=== PATIENT | female | born 1935 | race Caucasian/White ===

== ENCOUNTER → 2017-08-17 | Outpatient (CLI) | payer OTHER ==
[2017-08-17 09:35] LABS: HEMATOCRIT 40.9 % (37-47); MEAN CELL VOLUME 91.3 fL (80-100); MEAN CORPUSCULAR HEMOGLOBIN 30.8 pg (25-34); MEAN CORPUSCULAR HGB CONC 33.7 g/dl (32-36); MEAN PLATELET VOLUME 11.3 fL (7.4-10.4); PLATELET COUNT 253 K/uL (130-400); RED BLOOD COUNT 4.48 M/uL (4.2-5.4); WHITE BLOOD COUNT 8.82 K/uL (4.8-10.8)
[2017-08-17 09:43] LABS: ALT/SGPT 27 U/L (12-78); BLOOD UREA NITROGEN 23 mg/dl (7-18); BUN/CREATININE RATIO 22.2 (10-20); CALCIUM 9.7 mg/dl (8.5-10.1); CARBON DIOXIDE 27 mmol/L (21-32); CHLORIDE 105 mmol/L (98-107); CHOLESTEROL 163 mg/dl (0-200); CREATININE 1.02 mg/dl (0.60-1.20); GLUCOSE 117 mg/dl (70-99); POTASSIUM 3.5 mmol/L (3.5-5.1); SODIUM 138 mmol/L (136-145)
[2017-08-17 09:54] LABS: ALB/GLOB RATIO 0.9 (0.9-2); ALKALINE PHOSPHATASE 75 U/L (45-117); AST/SGOT 19 U/L (15-37); CHOLESTEROL/HDL RATIO 2.9; HDL CHOLESTEROL 56 mg/dl; LDL CHOLESTEROL CALCULATED 70 mg/dl; TRIGLYCERIDES 184 mg/dl (0-150); VERY LOW DENSITY LIPOPROT CALC 37 mg/dl
== END | disposition home or self-care (01) ==
LOC: C.LABFOXMH 09:20
PROVIDERS: ATTEND Internal Medicine
DX: I10 Essential (primary) hypertension (principal); E78.00 Pure hypercholesterolemia, unspecified

== ENCOUNTER → 2018-04-07 | Outpatient (CLI) | payer OTHER ==
[2018-04-07 10:11] LABS: BLOOD UREA NITROGEN 26 mg/dl (7-18); CALCIUM 9.6 mg/dl (8.5-10.1); CARBON DIOXIDE 27 mmol/L (21-32); CREATININE 0.99 mg/dl (0.60-1.20); GLUCOSE 109 mg/dl (70-99); POTASSIUM 4.1 mmol/L (3.5-5.1); SODIUM 140 mmol/L (136-145)
[2018-04-07 10:25] LABS: HEMOGLOBIN A1C 6.3 % (4.5-5.6)
== END | disposition home or self-care (01) ==
LOC: C.LABFOXMH 09:05
PROVIDERS: ATTEND Internal Medicine
DX: E11.9 Type 2 diabetes mellitus without complications (principal)

== ENCOUNTER 2020-12-20 16:26 | Inpatient (IN) ==
--- NOTE | 2020-12-20 19:01 | Emergency Department Note ---
History of Present Illness General Chief complaint: Fall Stated complaint: FALL, HEAD INJ, BACK INJ Time Seen by Provider: 12/20/20 18:45 Source: patient History of Present Illness Provider complaint: Back pain Onset (ago): hour(s) Location: back Radiation: non-radiation Pain Consistency: + constant Maximum Pain Intensity: 10 Quality: + dull Exacerbated By: + movement Associated symptoms: no chest pain, no cough, no fever/chills, no headaches, no nausea/vomiting and no shortness of breath This is an 85-year-old female presents with back pain after a fall just prior to arrival. The patient was playing [employer] and fell backwards and hit her back on the ground. She also hit her head but she denies any headache or LOC. She denies any blood thinners other than aspirin. She complains of pain from her neck down to her upper low back. She describes it as dull. It is worse with movement. She rates it a 10 out of 10 in severity. No associated focal numbness or weakness in the extremities. She denies any hip or extremity pain. She denies any recent illness or fever, cough or cold symptoms, chest pain, shortness of breath, abdominal pain, vomiting, diarrhea or urinary symptoms. Home Medications Medication Instructions Recorded Confirmed Type amlodipine 5 mg tablet 5 mg PO QAM 06/30/19 12/20/20 History aspirin 81 mg tablet,delayed 81 mg PO 3XWK 06/30/19 12/20/20 History release atenolol 50 mg tablet 50 mg PO QAM 06/30/19 12/20/20 History cholecalciferol (vitamin D3) 25 1,000 units PO QAM 06/30/19 12/20/20 History mcg (1,000 unit) capsule cranberry concentrate-ascorbic 1 cap PO WK cap 06/30/19 12/20/20 History acid 140 mg-100 mg capsule losartan 100 mg tablet 100 mg PO QAM 06/30/19 12/20/20 History potassium chloride 10 mEq 30 meq PO DAILY cap 06/30/19 12/20/20 History capsule,extended release rosuvastatin 10 mg tablet 10 mg PO WK 06/30/19 12/20/20 History sodium chloride 5 % eye drops 1 drops OP QAM 06/30/19 12/20/20 History sodium chloride 5 % eye ointment 1 appln OP HS 06/30/19 12/20/20 History triamterene 37.5 1 cap PO QAM 06/30/19 12/20/20 History mg-hydrochlorothiazide 25 mg capsule acetaminophen [Acetaminophen Extra 500 mg PO BID PRN 08/18/19 12/20/20 History Strength] diphenhydramine-acetaminophen 1 tab PO HS 08/18/19 12/20/20 History [Acetaminophen PM] sodium chloride [Saline Nasal] 1 spray INTRANASAL QA 08/18/19 12/20/20 History pantoprazole 40 mg tablet,delayed 40 mg PO DAILY #90 tab 11/24/19 12/20/20 Rx release metformin 500 mg PO DAILY 12/20/20 12/20/20 History Allergies Allergy/AdvReac Type Severity Reaction Status Date / Time No Known Drug Allergies Allergy Unknown Verified 12/20/20 19:49 Past Med/Surg History Medical History (Updated 12/20/20 @ 22:25 by Candido Duggan MD) Basal cell carcinoma of nose Difficulty swallowing pills Hyperlipidemia Hypertension Osteoarthritis Surgical History History of appendectomy 1963 History of bilateral cataract extraction History of carpal tunnel surgery of left wrist History of colonoscopy with polypectomy History of dilatation and curettage History of hand surgery bone removal of left hand under thumb History of hysterectomy 2010 History of left breast biopsy benign History of tonsillectomy and adenoidectomy History of tooth extraction History of wisdom tooth extraction Family History Mother Hearing loss Heart disease Hypertension Family history of diabetes mellitus Aunt Breast cancer Other No family history of adverse response to anesthesia No family history of bleeding disorder Social History Smoking Status: Former smoker Tobacco Type: Cigarettes packs per day: 0.5; Years Smoked: 7; Second Hand Exposure: No; Hx Alcohol Use: Yes Alcohol type: wine Hx Substance Use: No Preferred Language: [place]ese Communication Ability: Effective 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 and A total of 10 systems reviewed and were otherwise negative Physical Exam Vital Signs Vital Signs - 24 hr 12/20/20 17:09 12/20/20 19:48 12/20/20 21:00 Temperature 36.6 C Temperature Source Oral Pulse Rate 61 Pulse Rate [Radial] 82 82 Pulse Rate from SpO2 Sensor Pulse Rhythm Regular Pulse Strength Normal Respiratory Rate 20 20 20 Respiratory Effort / Characteristics Non-Labored Spontaneous Respiratory Depth Normal Normal Respiratory Pattern Regular Blood Pressure 157/85 H Blood Pressure [Right Arm] 165/81 H 155/75 H Blood Pressure Mean 109 Blood Pressure Mean [Right Arm] 109 101 Blood Pressure Position [Right Arm] Sitting Pulse Oximetry 97 96 96 Oxygen Delivery Method Room Air Room Air Room Air Sepsis Recent Fever Within 48 Hours No Sepsis New/Unexplained Change in Mental Status N/A Sepsis Action Taken by Nursing No Action Required 12/20/20 21:13 12/20/20 21:31 12/20/20 21:38 Temperature Temperature Source Pulse Rate 76 73 72 Pulse Rate [Radial] Pulse Rate from SpO2 Sensor 77 74 71 Pulse Rhythm Pulse Strength Respiratory Rate 18 13 17 Respiratory Effort / Characteristics Respiratory Depth Respiratory Pattern Blood Pressure 162/85 H 147/101 H Blood Pressure [Right Arm] Blood Pressure Mean 110 116 Blood Pressure Mean [Right Arm] Blood Pressure Position [Right Arm] Pulse Oximetry 94 90 91 Oxygen Delivery Method Sepsis Recent Fever Within 48 Hours Sepsis New/Unexplained Change in Mental Status Sepsis Action Taken by Nursing 12/20/20 22:00 Temperature Temperature Source Pulse Rate 72 Pulse Rate [Radial] Pulse Rate from SpO2 Sensor 73 Pulse Rhythm Pulse Strength Respiratory Rate 19 Respiratory Effort / Characteristics Respiratory Depth Respiratory Pattern Blood Pressure 143/75 H Blood Pressure [Right Arm] Blood Pressure Mean 97 Blood Pressure Mean [Right Arm] Blood Pressure Position [Right Arm] Pulse Oximetry 95 Oxygen Delivery Method Sepsis Recent Fever Within 48 Hours Sepsis New/Unexplained Change in Mental Status Sepsis Action Taken by Nursing Constitutional: Vital signs reviewed. Eyes: Pupils are equal round reactive to light. Conjunctiva are noninjected. ENT: Pharynx is clear without erythema or exudate. Mucous membranes are moist. Neck supple without meningeal signs. Respiratory: Clear to auscultation bilaterally. Breath sounds are equal bilaterally. Cardiovascular: Regular rate and rhythm. No rubs or gallops. GI: Soft, nondistended and nontender. Bowel sounds are present. Musculoskeletal: No hip tenderness. There is midline tenderness in the upper lumbar lower thoracic and lower cervical spine. No step-off or deformity. Integumentary: No cyanosis. or jaundice. Neurologic: The patient is awake and alert. Cranial nerves II-XII are intact. Motor is 5 out of 5 all extremities. Sensation is intact to light touch all extremities. Normal speech. No pronator drift. Psychiatric: Normal affect. Not anxious appearing. Course Administered Medications Discontinued Medications Morphine Sulfate (Morphine Sulfate 2 Mg/Ml Carp) 2 mg IV NOW STA Stop: 12/20/20 21:02 Last Admin: 12/20/20 21:22 Dose: 2 mg Documented by: [id number] Ondansetron HCl (Ondansetron Inj 2 Mg/Ml 2 Ml Vial) 4 mg IV NOW STA Stop: 12/20/20 21:02 Last Admin: 12/20/20 21:22 Dose: 4 mg Documented by: [id number] Medical Decision Making Differential Diagnosis Vertebral fracture, compression fracture, transverse process fracture, contusion, intracranial hemorrhage, concussion Medical Records Attestation: I reviewed the patient's medical records. I did perform a limited focused review of portions of the patient's old chart on the electronic medical record. The patient has had no recent pertinent visits to this hospital. Home Medications Current Medication List: was personally reviewed by me Laboratory Data Attestation: I reviewed the patient's lab results. Result diagrams: 12/20/20 Unknown 12/20/20 Unknown Lab Results 12/20/20 12/20/20 12/20/20 Range/Units Unknown Unknown Unknown WBC 15.48 H (4.8-10.8) K/uL RBC 4.57 (4.2-5.4) M/uL Hgb 14.4 (12.0-16.0) g/dL Hct 42.1 (37-47) % MCV 92.1 (80-100) fL MCH 31.5 (25-34) pg MCHC 34.2 (32-36) g/dL RDW Std Deviation 44.1 (36.4-46.3) fL RDW Coeff of Dylon 13.2 (11.5-14.5) % Plt Count 250 (130-400) K/uL MPV 11.3 H (7.4-10.4) fL Immature Gran % (Auto) 0.3 % Neut % (Auto) 82.8 % Lymph % (Auto) 10.3 % Gillespie % (Auto) 6.2 % Eos % (Auto) 0.3 % Baso % (Auto) 0.1 % Neut # (Auto) 12.82 H (1.4-6.5) K/uL Lymph # (Auto) 1.59 (1.2-3.4) K/uL Gillespie # (Auto) 0.96 H (0.11-0.59) K/uL Eos # (Auto) 0.05 (0-0.5) K/uL Baso # (Auto) 0.01 (0-0.2) K/uL Immature Gran # (Auto) 0.05 H (0.00-0.02) K/uL PT 10.3 (9.0-12.0) Seconds INR 1.0 (0.9-1.1) APTT 23.6 (21.0-31.0) Seconds PTT Ratio 0.9 Sodium 139 (136-145) mmol/L Potassium 4.3 (3.5-5.1) mmol/L Chloride 107 (98-107) mmol/L Carbon Dioxide 24 (21-32) mmol/L Anion Gap 8.0 (3-11) BUN 31 H (7-18) mg/dl Creatinine 1.06 (0.6-1.2) mg/dl Est Cr Clr Drug Dosing 33.6 ml/min Est GFR ( Amer) 55.1 Est GFR (Non-Af Amer) 47.5 BUN/Creatinine Ratio 29.2 H (10-20) Glucose 156 H (70-99) mg/dl Calcium 10.5 H (8.5-10.1) mg/dl COVID-19 Eval Order 12/20/20 Range/Units Unknown WBC (4.8-10.8) K/uL RBC (4.2-5.4) M/uL Hgb (12.0-16.0) g/dL Hct (37-47) % MCV (80-100) fL MCH (25-34) pg MCHC (32-36) g/dL RDW Std Deviation (36.4-46.3) fL RDW Coeff of Dylon (11.5-14.5) % Plt Count (130-400) K/uL MPV (7.4-10.4) fL Immature Gran % (Auto) % Neut % (Auto) % Lymph % (Auto) % Gillespie % (Auto) % Eos % (Auto) % Baso % (Auto) % Neut # (Auto) (1.4-6.5) K/uL Lymph # (Auto) (1.2-3.4) K/uL Gillespie # (Auto) (0.11-0.59) K/uL Eos # (Auto) (0-0.5) K/uL Baso # (Auto) (0-0.2) K/uL Immature Gran # (Auto) (0.00-0.02) K/uL PT (9.0-12.0) Seconds INR (0.9-1.1) APTT (21.0-31.0) Seconds PTT Ratio Sodium (136-145) mmol/L Potassium (3.5-5.1) mmol/L Chloride (98-107) mmol/L Carbon Dioxide (21-32) mmol/L Anion Gap (3-11) BUN (7-18) mg/dl Creatinine (0.6-1.2) mg/dl Est Cr Clr Drug Dosing ml/min Est GFR ( Amer) Est GFR (Non-Af Amer) BUN/Creatinine Ratio (10-20) Glucose (70-99) mg/dl Calcium (8.5-10.1) mg/dl COVID-19 Eval Order CovFluRsv at [facility] Imaging Data Radiologist's Impression: Cervical Spine CT 12/20/20 18:55 CT OF THE CERVICAL SPINE WITHOUT CONTRAST CLINICAL HISTORY: Fall. COMPARISON STUDY: Cervical spine radiographs June 02, 2019. TECHNIQUE: Helical axial images of the cervical spine were obtained without IV contrast. Sagittal and coronal reconstructions were viewed. Automated exposure control was utilized for the study. A dose lowering technique was utilized adhering to the principles of ALARA. FINDINGS: Alignment of the cervical spine is anatomic. Vertebral body heights are maintained. No acute cervical spine fracture or subluxation is present. There is no prevertebral edema. Facet joints are intact. Severe multilevel facet arthrosis is present. There is also extensive multilevel endplate osteophytosis. IMPRESSION: No acute cervical spine fracture or subluxation. ACT 112: Negative or not required by law. Electronically signed by: Barry Cohen M.D. 12/20/2020 7:[address] 12/20/20 18:55 CT OF THE HEAD WITHOUT CONTRAST CLINICAL HISTORY: Fall. COMPARISON STUDY: No previous studies for comparison. TECHNIQUE: Helical axial images of the head were obtained without IV contrast. Automated exposure control was utilized for the study. A dose lowering technique was utilized adhering to the principles of ALARA. FINDINGS: No acute intracranial hemorrhage, midline shift or mass effect is present. Mild white matter hypodensity suggests small vessel disease. The ventricular system is unremarkable. The basal cisterns are patent. No extra- axial collections are present. There are no findings to suggest acute dural sinus thrombosis or acute territorial infarct. No significant calvarial abnormalities are present. Visualized portions of the sinuses and mastoid air cells are clear. IMPRESSION: 1. No acute intracranial findings. 2. No calvarial fracture. ACT 112: Negative or not required by law. Electronically signed by: Barry Cohen M.D. 12/20/2020 7:[address] 12/20/20 18:55 CT OF THE LUMBAR SPINE CLINICAL HISTORY: fall eval for injury COMPARISON STUDY: No previous studies for comparison. TECHNIQUE: Helical axial images of the lumbar spine were obtained. Sagittal and coronal reconstructions were viewed. Automated exposure control was utilized for the study. A dose lowering technique was utilized adhering to the principles of ALARA. FINDINGS: There is mild dextroscoliosis of the lumbar spine. Vertebral body heights are maintained. There is no acute lumbar spine fracture. Moderate to severe multilevel disc space narrowing is noted as well as facet arthrosis. The central canal and neural foramen are suboptimally assessed by CT. Paravertebral soft tissues are unremarkable. The sacroiliac joints are intact. IMPRESSION: 1. No acute lumbar spine fracture or subluxation. 2. Severe multilevel facet arthrosis within the lumbar spine. Moderate to severe multilevel degenerative disc disease. 3. Mild dextroscoliosis of the lumbar spine. ACT 112: Negative or not required by law. Electronically signed by: Barry Cohen M.D. 12/20/2020 8:[address] 12/20/20 18:55 CT OF THE THORACIC SPINE CLINICAL HISTORY: fall eval for injury COMPARISON STUDY: No previous studies for comparison. TECHNIQUE: Helical axial images of the thoracic spine were obtained. Sagittal and coronal reconstructions were viewed. Automated exposure control was utilized for the study. A dose lowering technique was utilized adhering to the principles of ALARA. FINDINGS: Note is made of a horizontal acute nondisplaced fracture which extends through the mid aspect of the T11 vertebral body as well as right lateral osteophytes at this level. No extension into the posterior elements is identified on this examination. There is also a probable additional acute fr acture through right sided osteophytes at the level of the T9-T10 disc space. No extension into the posterior elements is identified by CT. Central canal and neural foramen are suboptimally assessed by CT but no additional acute thoracic spine fractures are present. There is extensive anterior osteophytosis of the thoracic spine. Prevertebral soft tissues are unremarkable. A few hypodense hepatic lesions are noted. The largest is a 2.4 cm right hepatic lobe lesion. There is biliary ductal dilatation. The common bile duct measures approximately 1.2 cm in caliber. IMPRESSION: 1. Acute horizontal fracture through the T11 vertebral body and right lateral osteophytes at this level. No extension into the posterior elements by CT. However, stability of this fracture is difficult to assess by CT given extensive anterior osteophytosis. Therefore, at a minimum, short-term imaging follow-up is recommended to exclude the possibility of a developing pseudoarthrosis. 2. Probable additional acute nondisplaced fracture through right sided osteophytes at the T9-T10 disc space. 3. A few hypodense hepatic lesions which favor cysts. Nonemergent ultrasound is recommended. 4. Mild biliary ductal dilatation. Correlation with liver function tests is recommended. ACT 112: Negative or not required by law. Electronically signed by: Barry Cohen M.D. 12/20/2020 8:39 PM Head Trauma GCS Score: 15 MDM Narrative I did evaluate the patient as noted above. The patient is presenting with back pain and neck pain after a mechanical fall while playing ping-pong. She is neurologically intact. She was placed in a rigid cervical collar. I did order a CT of the head, cervical, thoracic, lumbar spine. I did review the images myself as well as the radiology report as described above. She has a fracture through the T11 vertebral body which is nondisplaced. She also has a fracture through an osteophyte. CT of the head, cervical spine and lumbar spine shows no acute process. I did discuss the case with Dr. Mcbride of orthopedic spine. He recommended bed rest or sitting up in bed only and he will see the patient tomorrow and place her in a thoracic brace. I did discuss the test results with the patient and her son. A Cowan catheter was placed so that she would not have to use a bedpan. IV access was established. I did treat her with IV morphine and Zofran. I did order and review the patient's blood work as noted in the electronic medical record. Her white count is 15,000 but her CBC is otherwise unremarkable. Electrolytes are unremarkable other than a calcium of 10.5. The case was discussed with the case packer and the hospitalist was informed. Impression & Plan Fracture of thoracic vertebra, Head injury, Fall Discharge Plan Visit Data Chief Complaint: Fall Stated Complaint: FALL, HEAD INJ, BACK INJ ED Provider: Candido Duggan Discharge Problem: Fracture of thoracic vertebra, Head injury, Fall Patient Disposition: Being Evaluated by Hospitalist Forms Stand Alone Forms: My [facility] Prescriptions Prescriptions: No Action pantoprazole 40 mg tablet,delayed release (DR/EC) 40 mg PO DAILY Qty: 90 RF: 3 losartan 100 mg tablet 100 mg PO QAM RF: 0 triamterene-hydrochlorothiazid 37.5-25 mg capsule 1 cap PO QAM RF: 0 atenolol 50 mg tablet 50 mg PO QAM RF: 0 amlodipine [Norvasc] 5 mg tablet 5 mg PO QAM RF: 0 potassium chloride 10 mEq capsule, extended release 30 meq PO DAILY RF: 0 cholecalciferol (vitamin D3) 1,000 unit capsule 1,000 units PO QAM RF: 0 aspirin [Adult Low Dose Aspirin] 81 mg tablet,delayed release (DR/EC) 81 mg PO 3XWK RF: 0 rosuvastatin [Crestor] 10 mg tablet 10 mg PO WK RF: 0 Cranberry Plus Vitamin C 140-100 mg capsule 1 cap PO WK RF: 0 sodium chloride 5 % drops 1 drops OP QAM RF: 0 sodium chloride 5 % ointment 1 appln OP HS RF: 0 acetaminophen [Acetaminophen Extra Strength] 500 mg Tablet 500 mg PO BID PRN (Reason: Pain) RF: 0 diphenhydramine-acetaminophen [Acetaminophen PM] 25-500 mg Tablet 1 tab PO HS RF: 0 sodium chloride [Saline Nasal] 0.65 % Aerosol,[place] 1 spray INTRANASAL QAM RF: 0 metformin 500 mg tablet extended release 24 hr 500 mg PO DAILY RF: 0 Referrals Referrals: Cesilia Penaloza [Primary Care Provider] -
--- NOTE | 2020-12-20 19:45 | CT Scan Report ---
CT OF THE HEAD WITHOUT CONTRAST CLINICAL HISTORY: Fall. COMPARISON STUDY: No previous studies for comparison. TECHNIQUE: Helical axial images of the head were obtained without IV contrast. Automated exposure con trol was utilized for the study. A dose lowering technique was utilized adhering to the principles o f ALARA. FINDINGS: No acute intracranial hemorrhage, midline shift or mass effect is present. Mild white matte r hypodensity suggests small vessel disease. The ventricular system is unremarkable. The basal cister ns are patent. No extra-axial collections are present. There are no findings to suggest acute dural s inus thrombosis or acute territorial infarct. No significant calvarial abnormalities are present. Vis ualized portions of the sinuses and mastoid air cells are clear. IMPRESSION: 1. No acute intracranial findings. 2. No calvarial fracture. ACT 112: Negative or not required by law. Electronically signed by: Barry Cohen M.D. 12/20/2020 7:44 PM
--- NOTE | 2020-12-20 19:49 | CT Scan Report ---
CT OF THE CERVICAL SPINE WITHOUT CONTRAST CLINICAL HISTORY: Fall. COMPARISON STUDY: Cervical spine radiographs June 02, 2019. TECHNIQUE: Helical axial images of the cervical spine were obtained without IV contrast. Sagittal a nd coronal reconstructions were viewed. Automated exposure control was utilized for the study. A do se lowering technique was utilized adhering to the principles of ALARA. FINDINGS: Alignment of the cervical spine is anatomic. Vertebral body heights are maintained. No acut e cervical spine fracture or subluxation is present. There is no prevertebral edema. Facet joints are intact. Severe multilevel facet arthrosis is present. There is also extensive multilevel endplate o steophytosis. IMPRESSION: No acute cervical spine fracture or subluxation. ACT 112: Negative or not required by law. Electronically signed by: Barry Cohen M.D. 12/20/2020 7:47 PM
--- NOTE | 2020-12-20 20:40 | CT Scan Report ---
CT OF THE THORACIC SPINE CLINICAL HISTORY: fall eval for injury COMPARISON STUDY: No previous studies for comparison. TECHNIQUE: Helical axial images of the thoracic spine were obtained. Sagittal and coronal reconstru ctions were viewed. Automated exposure control was utilized for the study. A dose lowering techniqu e was utilized adhering to the principles of ALARA. FINDINGS: Note is made of a horizontal acute nondisplaced fracture which extends through the mid aspe ct of the T11 vertebral body as well as right lateral osteophytes at this level. No extension into th e posterior elements is identified on this examination. There is also a probable additional acute fra cture through right sided osteophytes at the level of the T9-T10 disc space. No extension into the po sterior elements is identified by CT. Central canal and neural foramen are suboptimally assessed by C T but no additional acute thoracic spine fractures are present. There is extensive anterior osteophyt osis of the thoracic spine. Prevertebral soft tissues are unremarkable. A few hypodense hepatic lesio ns are noted. The largest is a 2.4 cm right hepatic lobe lesion. There is biliary ductal dilatation. The common bile duct measures approximately 1.2 cm in caliber. IMPRESSION: 1. Acute horizontal fracture through the T11 vertebral body and right lateral osteophytes at this lev el. No extension into the posterior elements by CT. However, stability of this fracture is difficult to assess by CT given extensive anterior osteophytosis. Therefore, at a minimum, short-term imaging f ollow-up is recommended to exclude the possibility of a developing pseudoarthrosis. 2. Probable additional acute nondisplaced fracture through right sided osteophytes at the T9-T10 disc space. 3. A few hypodense hepatic lesions which favor cysts. Nonemergent ultrasound is recommended. 4. Mild biliary ductal dilatation. Correlation with liver function tests is recommended. ACT 112: Negative or not required by law. Electronically signed by: Barry Cohen M.D. 12/20/2020 8:39 PM
--- NOTE | 2020-12-20 20:49 | CT Scan Report ---
CT OF THE LUMBAR SPINE CLINICAL HISTORY: fall eval for injury COMPARISON STUDY: No previous studies for comparison. TECHNIQUE: Helical axial images of the lumbar spine were obtained. Sagittal and coronal reconstruct ions were viewed. Automated exposure control was utilized for the study. A dose lowering technique was utilized adhering to the principles of ALARA. FINDINGS: There is mild dextroscoliosis of the lumbar spine. Vertebral body heights are maintained. T here is no acute lumbar spine fracture. Moderate to severe multilevel disc space narrowing is noted a s well as facet arthrosis. The central canal and neural foramen are suboptimally assessed by CT. Para vertebral soft tissues are unremarkable. The sacroiliac joints are intact. IMPRESSION: 1. No acute lumbar spine fracture or subluxation. 2. Severe multilevel facet arthrosis within the lumbar spine. Moderate to severe multilevel degenerat gina disc disease. 3. Mild dextroscoliosis of the lumbar spine. ACT 112: Negative or not required by law. Electronically signed by: Barry Cohen M.D. 12/20/2020 8:48 PM
[2020-12-20] MEDS ORDERED: ONDANSETRON INJ 2 MG/ML 2 ML VIAL IV STA (21:01)
[2020-12-20] MEDS ORDERED: MoRPHine SULFATE 2 MG/ML CARP IV STA (21:01)
[2020-12-20 22:00] LABS: Basophils # (auto) 0.01 K/uL (0-0.2); Basophils % (auto) 0.1 %; Eosinophils # (auto) 0.05 K/uL (0-0.5); Eosinophils % (auto) 0.3 %; Hematocrit (blood only) 42.1 % (37-47); Hemoglobin 14.4 g/dL (12.0-16.0); Immature Granulocytes # (auto) 0.05 K/uL (0.00-0.02); Immature Granulocytes % (auto) 0.3 %; Lymphocytes # (auto) 1.59 K/uL (1.2-3.4); Lymphocytes % (auto) 10.3 %; Mean Corpuscular Hemoglobin 31.5 pg (25-34); Mean Corpuscular Hgb Conc 34.2 g/dL (32-36); Mean Corpuscular Volume 92.1 fL (80-100); Mean Platelet Volume 11.3 fL (7.4-10.4); Monocytes # (auto) 0.96 K/uL (0.11-0.59); Monocytes % (auto) 6.2 %; Neutrophils # (auto) 12.82 K/uL (1.4-6.5); Neutrophils % (auto) 82.8 %; Platelet Count 250 K/uL (130-400); RDW Coefficient of Variation 13.2 % (11.5-14.5); RDW Standard Deviation 44.1 fL (36.4-46.3); Red Blood Count 4.57 M/uL (4.2-5.4); White Blood Count 15.48 K/uL (4.8-10.8)
[2020-12-20 22:15] LABS: Partial Thromboplastin Ratio 0.9; Partial Thromboplastin Time 23.6 Seconds (21.0-31.0); Prothrombin Time 10.3 Seconds (9.0-12.0)
[2020-12-20 22:18] LABS: BUN Creatinine Ratio 29.2 (10-20); Calcium 10.5 mg/dl (8.5-10.1); Creatinine Clr Calc Pharmacy 33.6 ml/min; Est GFR (African American) 55.1; Est GFR (Non-African American) 47.5; Potassium 4.3 mmol/L (3.5-5.1)
--- NOTE | 2020-12-20 22:37 | History & Physical Report ---
Date of Service December 20, 2020 Assessment & Plan (1) Fracture of thoracic vertebra: CT of thoracic spine reveals T11 vertebral body fracture and right lateral osteophyte fractures. T9-[address] lumbar spine shows multilevel degenerative disc disease. Acetaminophen 650 mg p.o. every 6 hours as needed mild pain or fever [place] 5/325, 1 p.o. every 6 hours as needed moderate pain, and 2 p.o. every 6 hours as needed severe pain Dilaudid 0.25 mg IV every 3 hours as needed moderate pain Dilaudid 0.5 mg IV every 3 hours as needed severe pain NSS + KCl 20 mEq at 80 mils per hour Consult orthopedic spine surgery Dr. Mcbride, who will see patient in the a.m., and in addition will fit for back brace. Consult PT/OT Present on Admission?: Yes (2) Head injury: CT head without contrast is negative. CT cervical spine without contrast is negative Patient appears to be at low normal level of mentation per family in attendance. Present on Admission?: Yes (3) Fall: Mechanical fall while playing [employer] Present on Admission?: Yes (4) GERD (gastroesophageal reflux disease): GERD/esophageal dysphagia- Continue pantoprazole 40 mg daily Present on Admission?: Yes (5) Esophageal dysphagia: See above Present on Admission?: Yes (6) Diabetes mellitus: Hold Metformin. Placed on Accu-Cheks before meals and at bedtime with NovoLog coverage per scale Present on Admission?: Yes (7) Hyperlipidemia: Continue rosuvastatin 10 mg p.o. weekly Present on Admission?: Yes (8) Hypertension: Continue amlodipine, aspirin, atenolol and losartan with hold parameters Present on Admission?: Yes History of Present Illness Chief Complaint: The patient presents to the emergency department with complaint of back pain after a fall that occurred just prior to arrival. Primary Care Provider: Cesilia Penaloza The patient is a 85-year-old female with a past medical history including GERD, esophageal dysphagia, hypertension, diabetes mellitus, and hyperlipidemia. She reportedly was playing [employer] and fell backwards, hitting her back and head on the ground. She has not had any recent travels or sick exposures. She said no other falls or injuries. Allergies Allergy/AdvReac Type Severity Reaction Status Date / Time No Known Drug Allergies Allergy Unknown Verified 12/20/20 19:49 Home Medications Medication Instructions Recorded Confirmed Type amlodipine 5 mg tablet 5 mg PO QAM 06/30/19 12/20/20 History aspirin 81 mg tablet,delayed 81 mg PO [id number] 06/30/19 12/20/20 History release atenolol 50 mg tablet 50 mg PO QAM 06/30/19 12/20/20 History cholecalciferol (vitamin D3) 25 1,000 units PO QAM 06/30/19 12/20/20 History mcg (1,000 unit) capsule cranberry concentrate-ascorbic 1 cap PO WK cap 06/30/19 12/20/20 History acid 140 mg-100 mg capsule losartan 100 mg tablet 100 mg PO QAM 06/30/19 12/20/20 History potassium chloride 10 mEq 30 meq PO DAILY cap 06/30/19 12/20/20 History capsule,extended release rosuvastatin 10 mg tablet 10 mg PO WK 06/30/19 12/20/20 History sodium chloride 5 % eye drops 1 drops OP QAM 06/30/19 12/20/20 History sodium chloride 5 % eye ointment 1 appln OP HS 06/30/19 12/20/20 History triamterene 37.5 1 cap PO QAM 06/30/19 12/20/20 History mg-hydrochlorothiazide 25 mg capsule acetaminophen [Acetaminophen Extra 500 mg PO BID PRN 08/18/19 12/20/20 History Strength] diphenhydramine-acetaminophen 1 tab PO HS 08/18/19 12/20/20 History [Acetaminophen PM] sodium chloride [Saline Nasal] 1 spray INTRANASAL QAM 08/18/19 12/20/20 History pantoprazole 40 mg tablet,delayed 40 mg PO DAILY #90 tab 11/24/19 12/20/20 Rx release metformin 500 mg PO DAILY 12/20/20 12/20/20 History Past Med/Surg History Medical History (Updated 12/21/20 @ 05:29 by Horacio Myles MD) Basal cell carcinoma of nose Diabetes mellitus Difficulty swallowing pills Hyperlipidemia Hypertension Osteoarthritis Surgical History History of appendectomy 1963 History of bilateral cataract extraction History of carpal tunnel surgery of left wrist History of colonoscopy with polypectomy History of dilatation and curettage History of hand surgery bone removal of left hand under thumb History of hysterectomy 2010 History of left breast biopsy benign History of tonsillectomy and adenoidectomy History of tooth extraction History of wisdom tooth extraction Family History Mother Hearing loss Heart disease Hypertension Family history of diabetes mellitus Aunt Breast cancer Other No family history of adverse response to anesthesia No family history of bleeding disorder Social History Smoking Status: Former smoker Tobacco Type: Cigarettes packs per day: 0.5; Years Smoked: 7; Smoking End Date: Quit in 1963.; Second Hand Exposure: No; Do You Dip or Chew Tobacco: No; Tobacco Cessation Education Requested by Patient: No Hx Alcohol Use: Yes Alcohol type: wine Hx Substance Use: No Preferred Language: Romanian Communication Ability: Effective Finish Opener Required: No Beliefs That Will Affect Care: Holiness Holiness Beliefs: Confucianist. Current Living Situation: Alone and Other Current Living Situation Comment[place] [facility] [place] current occupational status: retired Other Information That Helps Us Care for You: No Feels Safe at Home: Yes Safety Concerns: Feels Safe At This Time Assistive Devices: Glasses Review of Systems Review of Systems: The patient denies chest pain, palpitations, shortness of breath, dyspnea on exertion, cough, lower extremity swelling, sore throat, fevers, chills, sweats, weight change, fatigue, nausea, vomiting, diarrhea , constipation, abdominal pain, pelvic pain, blood in urine or stool, dysuria, urinary frequency or urgency, lightheadedness, dizziness, headache, loss of consciousness, rash, abnormal bruising or bleeding, imbalance, focal or generalized weakness, numbness or tingling in arms or legs, generalized arthralgias or myalgias, or night sweats. The review of systems is otherwise negative other than for that already noted above, and at least 10 systems have been reviewed. Physical Exam Physical Exam: The patient is awake, alert and oriented 3, well developed and well nourished, lying in bed and in no acute distress. HEENT--PERRL, EOMI, mucous membranes and oropharynx dry. Neck--supple. No JVD. No bruits. Thyroid normal, trachea midline, no adenopathy. Heart--normal S1 and S2. No murmurs, rubs or gallops. Lungs--clear bilaterally, no respiratory distress, no accessory muscle use. Abdomen--normal bowel sounds and soft. Nontender. Nondistended, no hernias or masses, no organomegaly. Extremities--no cyanosis or clubbing. No edema. Dermatologic--normal skin turgor, normal color, no abnormal lymph nodes, no rash. Neurologic--cranial nerves II through XII grossly intact. Rheumatologic--limited exam due to back pain Psychiatric--normal affect. Results & Data Results & Data ([facility]) Vital Signs (Past 12 Hours) Vital Signs Temp Pulse Pulse Resp BP BP Pulse Ox 12/20/20 22:00 72 19 143/75 H 95 12/20/20 21:38 72 17 147/101 H 91 12/20/20 21:31 73 13 90 12/20/20 21:13 76 18 162/85 H 94 12/20/20 21:00 82 20 155/75 H 96 12/20/20 19:48 82 20 165/81 H 96 12/20/20 17:09 97.9 F 61 20 157/85 H 97 Laboratory Results Laboratory Results WBC 15.48 K/uL (4.8-10.8) H 12/20/20 Unknown RBC 4.57 M/uL (4.2-5.4) 12/20/20 Unknown Hgb 14.4 g/dL (12.0-16.0) 12/20/20 Unknown Hct 42.1 % (37-47) 12/20/20 Unknown MCV 92.1 fL (80-100) 12/20/20 Unknown MCH 31.5 pg (25-34) 12/20/20 Unknown MCHC 34.2 g/dL (32-36) 12/20/20 Unknown RDW Std Deviation 44.1 fL (36.4-46.3) 12/20/20 Unknown RDW Coeff of [place]ylon 13.2 % (11.5-14.5) 12/20/20 Unknown Plt Count 250 K/uL (130-400) 12/20/20 Unknown MPV 11.3 fL (7.4-10.4) H 12/20/20 Unknown Immature Gran % (Auto) 0.3 % 12/20/20 Unknown Neut % (Auto) 82.8 % 12/20/20 Unknown Lymph % (Auto) 10.3 % 12/20/20 Unknown [place] % (Auto) 6.2 % 12/20/20 Unknown Eos % (Auto) 0.3 % 12/20/20 Unknown Baso % (Auto) 0.1 % 12/20/20 Unknown Neut # (Auto) 12.82 K/uL (1.4-6.5) H 12/20/20 Unknown Lymph # (Auto) 1.59 K/uL (1.2-3.4) 12/20/20 Unknown [place] # (Auto) 0.96 K/uL (0.11-0.59) H 12/20/20 Unknown Eos # (Auto) 0.05 K/uL (0-0.5) 12/20/20 Unknown Baso # (Auto) 0.01 K/uL (0-0.2) 12/20/20 Unknown Immature Gran # (Auto) 0.05 K/uL (0.00-0.02) H 12/20/20 Unknown PT 10.3 Seconds (9.0-12.0) 12/20/20 Unknown INR 1.0 (0.9-1.1) 12/20/20 Unknown APTT 23.6 Seconds (21.0-31.0) 12/20/20 Unknown PTT Ratio 0.9 12/20/20 Unknown Sodium 139 mmol/L (136-145) 12/20/20 Unknown Potassium 4.3 mmol/L (3.5-5.1) 12/20/20 Unknown Chloride 107 mmol/L (98-107) 12/20/20 Unknown Carbon Dioxide 24 mmol/L (21-32) 12/20/20 Unknown Anion Gap 8.0 (3-11) 12/20/20 Unknown BUN 31 mg/dl (7-18) H 12/20/20 Unknown Creatinine 1.06 mg/dl (0.6-1.2) 12/20/20 Unknown Est Cr Clr Drug Dosing 33.6 ml/min 12/20/20 Unknown Est GFR ( Amer) 55.1 12/20/20 Unknown Est GFR (Non-Af Amer) 47.5 12/20/20 Unknown BUN/Creatinine Ratio 29.2 (10-20) H 12/20/20 Unknown Glucose 156 mg/dl (70-99) H 12/20/20 Unknown Calcium 10.5 mg/dl (8.5-10.1) H 12/20/20 Unknown COVID-19 Eval Order CovFluRsv at [facility] 12/20/20 Unknown SARS-CoV-2 (PCR) NEGATIVE (Negative) 12/20/20 Unknown Influenza Type A (PCR) Negative (Neg) 12/20/20 Unknown Influenza Type B (PCR) Negative (Neg) 12/20/20 Unknown RSV (RT-PCR) Negative (Neg) 12/20/20 Unknown Impressions Cervical Spine CT 12/20/20 18:55 CT OF THE CERVICAL SPINE WITHOUT CONTRAST CLINICAL HISTORY: Fall. COMPARISON STUDY: Cervical spine radiographs June 02, 2019. TECHNIQUE: Helical axial images of the cervical spine were obtained without IV contrast. Sagittal and coronal reconstructions were viewed. Automated exposure control was utilized for the study. A dose lowering technique was utilized adhering to the principles of ALARA. FINDINGS: Alignment of the cervical spine is anatomic. Vertebral body heights are maintained. No acute cervical spine fracture or subluxation is present. There is no prevertebral edema. Facet joints are intact. Severe multilevel facet arthrosis is present. There is also extensive multilevel endplate osteophytosis. IMPRESSION: No acute cervical spine fracture or subluxation. ACT 112: Negative or not required by law. Electronically signed by: Barry Cohen M.D. 12/20/2020 7:[address] 12/20/20 18:55 CT OF THE HEAD WITHOUT CONTRAST CLINICAL HISTORY: Fall. COMPARISON STUDY: No previous studies for comparison. TECHNIQUE: Helical axial images of the head were obtained without IV contrast. Automated exposure control was utilized for the study. A dose lowering technique was utilized adhering to the principles of ALARA. FINDINGS: No acute intracranial hemorrhage, midline shift or mass effect is present. Mild white matter hypodensity suggests small vessel disease. The ventricular system is unremarkable. The basal cisterns are patent. No extra- axial collections are present. There are no findings to suggest acute dural sinus thrombosis or acute territorial infarct. No significant calvarial abnormalities are present. Visualized portions of the sinuses and mastoid air cells are clear. IMPRESSION: 1. No acute intracranial findings. 2. No calvarial fracture. ACT 112: Negative or not required by law. Electronically signed by: Barry Cohen M.D. 12/20/2020 7:[address] 12/20/20 18:55 CT OF THE LUMBAR SPINE CLINICAL HISTORY: fall eval for injury COMPARISON STUDY: No previous studies for comparison. TECHNIQUE: Helical axial images of the lumbar spine were obtained. Sagittal and coronal reconstructions were viewed. Automated exposure control was utilized for the study. A dose lowering technique was utilized adhering to the principles of ALARA. FINDINGS: There is mild dextroscoliosis of the lumbar spine. Vertebral body heights are maintained. There is no acute lumbar spine fracture. Moderate to severe multilevel disc space narrowing is noted as well as facet arthrosis. The central canal and neural foramen are suboptimally assessed by CT. Paravertebral soft tissues are unremarkable. The sacroiliac joints are intact. IMPRESSION: 1. No acute lumbar spine fracture or subluxation. 2. Severe multilevel facet arthrosis within the lumbar spine. Moderate to severe multilevel degenerative disc disease. 3. Mild dextroscoliosis of the lumbar spine. ACT 112: Negative or not required by law. Electronically signed by: Barry Cohen M.D. 12/20/2020 8:[address] 12/20/20 18:55 CT OF THE THORACIC SPINE CLINICAL HISTORY: fall eval for injury COMPARISON STUDY: No previous studies for comparison. TECHNIQUE: Helical axial images of the thoracic spine were obtained. Sagittal and coronal reconstructions were viewed. Automated exposure control was utilized for the study. A dose lowering technique was utilized adhering to the principles of ALARA. FINDINGS: Note is made of a horizontal acute nondisplaced fracture which extends through the mid aspect of the T11 vertebral body as well as right lateral osteophytes at this level. No extension into the posterior elements is identified on this examination. There is also a probable additional acute fracture through right sided osteophytes at the level of the T9-T10 disc space. No extension into the posterior elements is identified by CT. Central canal and neural foramen are suboptimally assessed by CT but no additional acute thoracic spine fractures are present. There is extensive anterior osteophytosis of the thoracic spine. Prevertebral soft tissues are unremarkable. A few hypodense hepatic lesions are noted. The largest is a 2.4 cm right hepatic lobe lesion. There is biliary ductal dilatation. The common bile duct measures approximately 1.2 cm in caliber. IMPRESSION: 1. Acute horizontal fracture through the T11 vertebral body and right lateral osteophytes at this level. No extension into the posterior elements by CT. However, stability of this fracture is difficult to assess by CT given extensive anterior osteophytosis. Therefore, at a minimum, short-term imaging follow-up is recommended to exclude the possibility of a developing pseudoarthrosis. 2. Probable additional acute nondisplaced fracture through right sided ost eophytes at the T9-T10 disc space. 3. A few hypodense hepatic lesions which favor cysts. Nonemergent ultrasound is recommended. 4. Mild biliary ductal dilatation. Correlation with liver function tests is recommended. ACT 112: Negative or not required by law. Electronically signed by: Barry Cohen M.D. 12/20/2020 8:39 PM Code Status & VTE Plan Code Status Full code VTE Prophylaxis Plan VTE Prophylaxis will be ordered: Yes PG Care Time/CCT Total # of Minutes Spent Total Time Spent with Patient: Total time spent is greater than 50% in coordination of care (as documented) at patient's floor/unit and/or counseling patient: Coding Level of Care Code 53650 Initial Inpt Care Lvl 2 Diagnoses Fracture of thoracic vertebra S22.089A Encounter type: initial encounter Fracture morphology: unspecified fracture morphology Fracture type: closed Thoracic vertebra fracture level: T11 Head injury S09.90XA Encounter type: initial encounter Fall W19.XXXA Encounter type: initial encounter GERD (gastroesophageal reflux disease) K21.9 Esophageal dysphagia R13.10 Diabetes mellitus E11.9 Hyperlipidemia E78.5 Hypertension I10 (1) Fracture of thoracic vertebra Encounter type: initial encounter Fracture morphology: unspecified fracture morphology Fracture type: closed Thoracic vertebra fracture level: T11 Quali fied Code(s): S22.089A - Unspecified fracture of T11-T12 vertebra, initial encounter for closed fracture (2) Head injury Encounter type: initial encounter Qualified Code(s): S09.90XA - Unspecified injury of head, initial encounter (3) Fall Encounter type: initial encounter Qualified Code(s): W19.XXXA - Unspecified fall, initial encounter
[2020-12-20] MEDS ORDERED: BACLOFEN 10 MG TAB PO STA (22:38)
[2020-12-20 22:39] LABS: Influenza A virus by PCR Negative (Neg); Influenza B virus by PCR Negative (Neg); RSV by PCR Negative (Neg); SARS CoV2 RNA(COVID-19) InHosp NEGATIVE (Negative)
[2020-12-21] MEDS ORDERED: ONDANSETRON INJ 2 MG/ML 2 ML VIAL IV PRN (00:24)
[2020-12-21] MEDS ORDERED: CARBOHYDRATES FOR HYPOGLYCEMIA PO PRN (00:24)
[2020-12-21] MEDS ORDERED: GLUCOSE 40% GEL 15 GM TUBE PO PRN (00:24)
[2020-12-21] MEDS ORDERED: GLUCOSE 10 TABS/TUBE PO PRN (00:24)
[2020-12-21] MEDS ORDERED: HYDROCODONE/ACETAMOPHEN 5/325MG TAB PO PRN ×2 (00:24)
[2020-12-21] MEDS ORDERED: HYDROmorphone INJ 0.5 MG/0.5 ML SYR IV PRN (00:24)
[2020-12-21] MEDS ORDERED: DEXTROSE 50% 50 ML SYRINGE IV PRN (00:24)
[2020-12-21] MEDS ORDERED: GLUCAGON FOR INJ 1 MG VIAL SQ PRN (00:24)
[2020-12-21] MEDS ORDERED: ACETAMINOPHEN 500 MG TAB PO PRN (00:48)
[2020-12-21] MEDS: BACLOFEN 10 MG TAB PO PRN ×2 (01:37→12:57)
[2020-12-21 06:13] LABS: Basophils # (auto) 0.02 K/uL (0-0.2); Basophils % (auto) 0.1 %; Eosinophils # (auto) 0.01 K/uL (0-0.5); Eosinophils % (auto) 0.1 %; Hematocrit (blood only) 38.9 % (37-47); Hemoglobin 13.5 g/dL (12.0-16.0); Immature Granulocytes # (auto) 0.05 K/uL (0.00-0.02); Immature Granulocytes % (auto) 0.4 %; Lymphocytes # (auto) 2.13 K/uL (1.2-3.4); Mean Corpuscular Hemoglobin 31.3 pg (25-34); Mean Corpuscular Hgb Conc 34.7 g/dL (32-36); Mean Corpuscular Volume 90.3 fL (80-100); Mean Platelet Volume 11.1 fL (7.4-10.4); Monocytes % (auto) 9.1 %; Neutrophils # (auto) 10.71 K/uL (1.4-6.5); Neutrophils % (auto) 75.3 %; Platelet Count 238 K/uL (130-400); RDW Coefficient of Variation 13.1 % (11.5-14.5); RDW Standard Deviation 43.2 fL (36.4-46.3); Red Blood Count 4.31 M/uL (4.2-5.4); White Blood Count 14.22 K/uL (4.8-10.8)
[2020-12-21 06:47] LABS: Albumin Level 3.5 gm/dl (3.4-5.0); BUN Creatinine Ratio 30.1 (10-20); Calcium 9.9 mg/dl (8.5-10.1); Creatinine Clr Calc Pharmacy 41.2 ml/min; Est GFR (Non-African American) 59.5; Potassium 4.1 mmol/L (3.5-5.1)
[2020-12-21 06:48] LABS: Bilirubin,Total 0.8 mg/dl (0.2-1); Globulin 3.6 gm/dl (2.5-4.0); Total Protein 7.1 gm/dl (6.4-8.2)
[2020-12-21 07:21] LABS: Estimated Average Glucose 146 mg/dl; Hemoglobin A1C 6.7 % (4.5-5.6)
[2020-12-21] MEDS: INSULIN ASPART 100 UNITS/ML 3 ML PEN SC SCH ×4 (09:06→20:47)
--- NOTE | 2020-12-21 09:17 | CT Scan Report ---
ABDOMEN AND PELVIS CT WITHOUT CONTRAST CT DOSE: 441.31 mGy.cm HISTORY: gross hematuria post fall TECHNIQUE: Multiaxial CT images of the abdomen and pelvis were performed without contrast. A dose lo wering technique was utilized adhering to the principles of ALARA. COMPARISON STUDY: Lumbar spine CT 12/20/2020. FINDINGS: The fractures at the T9-T10 anterior osteophytes and the T11 horizontal fracture again note d. No pneumoperitoneum. No pneumatosis. A few hypodense lesions within the liver. These are incomplet [place] characterized on this noncontrast study but favor cysts. The unenhanced spleen, adrenal glands, p ancreas, gallbladder are unremarkable. Mild bilateral perinephric edema which is likely chronic. No r enal stones or hydronephrosis. No retroperitoneal lymphadenopathy or hematoma. Tiny fat-containing um bilical hernia. Mild pelvic floor collapse. There is a Cowan catheter within the decompressed bladder . This results in suboptimal evaluation of the bladder. Small amount of gas in bladder wall thickenin g is likely due to the decompression. Prior hysterectomy. Mild inflammatory change adjacent to a sing le diverticulum at the distal sigmoid colon best seen on image 359. This consistent with acute divert iculitis. No perforation or abscess identified. No evidence for bowel obstruction. IMPRESSION: 1. Mild acute sigmoid diverticulitis. No perforation or abscess. 2. Redemonstration of the lower thoracic spine fractures. 3. Additional findings as described above. 4. These findings were called/faxed to the referring physician following dictation. ACT 112: Negative or not required by law. Electronically signed by: Spenser Reynoso M.D. 12/21/2020 9:16 AM
[2020-12-21] MEDS ORDERED: PIPERACILL/TAZOBAC CONSULT ACTIVE PRN (09:34)
[2020-12-21] MEDS: PANTOprazole 40 MG TAB PO SCH (09:45)
[2020-12-21] MEDS: CHOLECALCIFEROL 1,000 UNITS 25 MCG TAB PO SCH (09:45)
[2020-12-21] MEDS: amLODIPine BESYLATE 5 MG TAB PO SCH (09:45)
[2020-12-21] MEDS: LOSARTAN POTASSIUM 50 MG TAB PO SCH (09:45)
[2020-12-21] MEDS: SODIUM CHLORIDE 5% OP SOLN 15 ML BTL OP SCH (09:45)
[2020-12-21] MEDS: SODIUM CHLORIDE 0.65% NA SOLN 45 ML (OCEAN) NAE SCH (09:45)
[2020-12-21] MEDS: ATENOLOL 50 MG TABLET PO SCH (09:45)
[2020-12-21] MEDS ORDERED: PIPERACILLIN/TAZOBACTAM 3.375 GM in DEXTROSE 5% 100 ML IV ONE (11:00)
[2020-12-21] MEDS: CALCITONIN SALMON NA 200 IU/AC 3.7 ML BTL SCH (13:53)
[2020-12-21] MEDS: LIDOCAINE 5% 1 PATCH TD SCH (13:53)
[2020-12-21] MEDS: ACETAMINOPHEN 500 MG TAB PO SCH ×2 (14:26→20:30)
[2020-12-21] MEDS: PIPERACILLIN/TAZOBACTAM 3.375 GM in DEXTROSE 5% 100 ML IV SCH ×2 (16:18→23:52)
--- NOTE | 2020-12-21 19:15 | Hospitalist Progress Note ---
Date of Service December 21, 2020 Assessment & Plan (1) Fracture of thoracic vertebra: CT of thoracic spine reveals T11 vertebral body fracture and right lateral osteophyte fractures. His wrist fracture with concern for possible development of pseudoarthrosis T9-[address] lumbar spine shows multilevel degenerative disc disease. Acetaminophen 1000 3 times daily Oxycodone as needed Adding Miacalcin Lidoderm patch Dilaudid 0.25 mg IV every 3 hours as needed moderate pain Dilaudid 0.5 mg IV every 3 hours as needed severe pain NSS + KCl 20 mEq at 80 mils per hour Consult orthopedic spine surgery Dr. Mcbride, will fit for back brace. Consult PT/OT (2) Head injury: CT head without contrast is negative. CT cervical spine without contrast is negative Patient appears to be at low normal level of mentation per family in attendance. (3) Fall: Mechanical fall while playing [employer] (4) GERD (gastroesophageal reflux disease): GERD/esophageal dysphagia- Continue pantoprazole 40 mg daily (5) Esophageal dysphagia: See above (6) Diabetes mellitus: Hold Metformin. Placed on Accu-Cheks before meals and at bedtime with NovoLog coverage per scale (7) Hyperlipidemia: Continue rosuvastatin 10 mg p.o. weekly (8) Hypertension: Continue amlodipine, aspirin, atenolol and losartan with hold parameters (9) Diverticulitis: Concern imaging for diverticulitis CT scan abdomen pelvis 12/20/2020 IMPRESSION: 1. Mild acute sigmoid diverticulitis. No perforation or absc started the patient on Zosyn therapy at this time Admission and Anticipated Discharge Date Admission Date: December 20, 2020 Subjective T11 fracture is seen on CT scan with also some concern for diverticulitis. Patient has had prehospital diarrhea. Patient has no significant abdominal pain but she has significant back pain Review of Systems Review of Systems: Mild distress and fatigue no headache, blurry or double vision no speech or swallowing issues no chest pain, pressure or palpitations no shortness of breath, cough or wheezes no abdominal pain, nausea or vomiting, persistent diarrhea prehospital no dysuria, hematuria or frequency no focal joint pain or swelling Persistent back pain without radiation no bruising, bleeding or rashes no focal signs of weakness or numbness or altered sensation no complaints of anxiety or depression.. Physical Exam Physical Exam: The patient appeared well nourished and normally developed. Vital signs as documented. Head exam is normocephalic atraumatic no scleral icterus Neck is without JVD, thyromegaly, or carotid bruits. Lungs are clear to auscultation, no focal loss of breath sounds Cardiac exam, Rhythm is regular.. No murmurs, rubs or gallops. Abdominal exam reveals normal bowel sounds, soft non tender, no masses Extremities are nonedematous and both pedal pulses are present Patient has point tenderness to her back at the appropriate level for T11 without radiation her lower extremities have bilateral reflexes and strength and sensation present distally Neurologic exam is alert and oriented, no focal loss of strength or sensation Skin is without bruises or rashes Psychologically is without concerns for anxiety or depression Results & Data Results & Data ([facility]) Vital Signs (Past 12 Hours) Vital Signs Temp Pulse Resp BP Pulse Ox 12/21/20 15:58 97.5 F L 57 L 16 142/72 H 92 12/21/20 07:28 98.8 F 80 18 147/73 H 94 PG Care Time/CCT Total # of Minutes Spent Total Time Spent with Patient: Total time spent is greater than 50% in coordination of care (as documented) at patient's floor/unit and/or counseling patient: Coding Level of Care Code 66146 Subseq Hosp Care Lvl 3 Diagnoses Fracture of thoracic vertebra S22.089A Encounter type: initial encounter Fracture morphology: unspecified fracture morphology Fracture type: closed Thoracic vertebra fracture level: T11 Head injury S09.90XA Encounter type: initial encounter Fall W19.XXXA Encounter type: initial encounter GERD (gastroesophageal reflux disease) K21.9 Esophageal dysphagia R13.10 Diabetes mellitus E11.9 Hyperlipidemia E78.5 Hypertension I10 Diverticulitis K57.92 (1) Fracture of thoracic vertebra Encounter type: initial encounter Fracture morphology: unspecified fracture morphology Fracture type: closed Thoracic vertebra fracture level: T11 Qualified Code(s): S22.089A - Unspecified fracture of T11-T12 vertebra, initial encounter for closed fracture (2) Head injury Encounter type: initial encounter Qualified Code(s): S09.90XA - Unspecified injury of head, initial encounter (3) Fall Encounter type: initial encounter Qualified Code(s): W19.XXXA - Unspecified fall, initial encounter
[2020-12-21] MEDS: SODIUM CHLORIDE 5% (MURO) OP OINT 3.5 GM TUBE OP SCH (20:31)
[2020-12-22 06:21] LABS: Basophils # (auto) 0.01 K/uL (0-0.2); Basophils % (auto) 0.1 %; Eosinophils # (auto) 0.15 K/uL (0-0.5); Eosinophils % (auto) 1.1 %; Hemoglobin 13.4 g/dL (12.0-16.0); Immature Granulocytes # (auto) 0.04 K/uL (0.00-0.02); Immature Granulocytes % (auto) 0.3 %; Lymphocytes # (auto) 2.37 K/uL (1.2-3.4); Lymphocytes % (auto) 17.9 %; Mean Corpuscular Hemoglobin 31.8 pg (25-34); Mean Corpuscular Hgb Conc 34.4 g/dL (32-36); Mean Corpuscular Volume 92.4 fL (80-100); Mean Platelet Volume 10.9 fL (7.4-10.4); Monocytes # (auto) 1.39 K/uL (0.11-0.59); Monocytes % (auto) 10.5 %; Neutrophils # (auto) 9.27 K/uL (1.4-6.5); Neutrophils % (auto) 70.1 %; Platelet Count 238 K/uL (130-400); RDW Coefficient of Variation 13.3 % (11.5-14.5); RDW Standard Deviation 44.9 fL (36.4-46.3); Red Blood Count 4.22 M/uL (4.2-5.4); White Blood Count 13.23 K/uL (4.8-10.8)
[2020-12-22 06:49] LABS: Albumin Level 3.2 gm/dl (3.4-5.0); BUN Creatinine Ratio 26.6 (10-20); Calcium 9.4 mg/dl (8.5-10.1); Creatinine Clr Calc Pharmacy 43.6 ml/min; Est GFR (Non-African American) 63.9; Potassium 3.8 mmol/L (3.5-5.1)
[2020-12-22 06:52] LABS: Albumin Globulin Ratio 0.8 (0.9-2); Bilirubin,Total 0.8 mg/dl (0.2-1); Total Protein 7.2 gm/dl (6.4-8.2)
[2020-12-22] MEDS: PIPERACILLIN/TAZOBACTAM 3.375 GM in DEXTROSE 5% 100 ML IV SCH ×3 (08:57→23:28)
[2020-12-22] MEDS: SODIUM CHLORIDE 5% OP SOLN 15 ML BTL OP SCH (08:57)
[2020-12-22] MEDS: SODIUM CHLORIDE 0.65% NA SOLN 45 ML (OCEAN) NAE SCH (08:57)
[2020-12-22] MEDS: CALCITONIN SALMON NA 200 IU/AC 3.7 ML BTL SCH (08:57)
[2020-12-22] MEDS: amLODIPine BESYLATE 5 MG TAB PO SCH (08:58)
[2020-12-22] MEDS: LOSARTAN POTASSIUM 50 MG TAB PO SCH (08:58)
[2020-12-22] MEDS: ATENOLOL 50 MG TABLET PO SCH (08:58)
[2020-12-22] MEDS: CHOLECALCIFEROL 1,000 UNITS 25 MCG TAB PO SCH (08:58)
[2020-12-22] MEDS: ACETAMINOPHEN 500 MG TAB PO SCH ×3 (08:58→20:05)
[2020-12-22] MEDS: LIDOCAINE 5% 1 PATCH TD SCH (08:59)
[2020-12-22] MEDS: PANTOprazole 40 MG TAB PO SCH (08:59)
[2020-12-22] MEDS: INSULIN ASPART 100 UNITS/ML 3 ML PEN SC SCH ×4 (09:12→21:07)
--- NOTE | 2020-12-22 10:33 | Orthopedic Consultation ---
Date of Consultation December 22, 2020 Assessment & Plan (1) Fracture of thoracic vertebra: Patient has suffered a horizontal fracture through the body of T11. The posterior elements appear to be intact. I explained the patient there is a chance this could heal well on its own without surgical intervention however if we noted that the fracture is propagating or any alignment issues develop with further imaging including delayed healing she may require surgical stabilization. We will have her fitted with a TLSO brace. This should be placed when getting out of bed with ambulation. She does not need to wear the brace while in bed. Present on Admission?: Yes History of Present Illness Reason for Consultation: Back pain status post T11 fracture Attending Physician: Candido Ochoa MD History of Present Illness This is a very pleasant 85-year-old female who presents the emergency room after a fall while playing ping-pong. She has been diagnosed with a horizontal fracture through the body of T11. Today she complains of thoracic back pain with motion. She denies any numbness or tingling to the lower extremities. She is comfortable as long as she is very slow and diligent with her mobilization in bed. Allergies Allergy/AdvReac Type Severity Reaction Status Date / Time No Known Drug Allergies Allergy Unknown Verified 12/20/20 19:49 Home Medications Medication Instructions Recorded Confirmed Type amlodipine 5 mg tablet 5 mg PO QAM 06/30/19 12/20/20 History aspirin 81 mg tablet,delayed 81 mg PO [id number] 06/30/19 12/20/20 History release atenolol 50 mg tablet 50 mg PO QAM 06/30/19 12/20/20 History cholecalciferol (vitamin D3) 25 1,000 units PO QAM 06/30/19 12/20/20 History mcg (1,000 unit) capsule cranberry concentrate-ascorbic 1 cap PO WK cap 06/30/19 12/20/20 History acid 140 mg-100 mg capsule losartan 100 mg tablet 100 mg PO QAM 06/30/19 12/20/20 History potassium chloride 10 mEq 30 meq PO DAILY cap 06/30/19 12/20/20 History capsule,extended release rosuvastatin 10 mg tablet 10 mg PO WK 06/30/19 12/20/20 History sodium chloride 5 % eye drops 1 drops OP QAM 06/30/19 12/20/20 History sodium chloride 5 % eye ointment 1 appln OP HS 06/30/19 12/20/20 History triamterene 37.5 1 cap PO QAM 06/30/19 12/20/20 History mg-hydrochlorothiazide 25 mg capsule acetaminophen [Acetaminophen Extra 500 mg PO BID PRN 08/18/19 12/20/20 History Strength] diphenhydramine-acetaminophen 1 tab PO HS 08/18/19 12/20/20 History [Acetaminophen PM] sodium chloride [Saline Nasal] 1 spray INTRANASAL QA 08/18/19 12/20/20 History pantoprazole 40 mg tablet,delayed 40 mg PO DAILY #90 tab 11/24/19 12/20/20 Rx release metformin 500 mg PO DAILY 12/20/20 12/20/20 History Patient History Medical History (Updated 12/21/20 @ 19:14 by Candido Ochoa MD) Basal cell carcinoma of nose Diabetes mellitus Difficulty swallowing pills Hyperlipidemia Hypertension Osteoarthritis Surgical History History of appendectomy 1963 History of bilateral cataract extraction History of carpal tunnel surgery of left wrist History of colonoscopy with polypectomy History of dilatation and curettage History of hand surgery bone removal of left hand under thumb History of hysterectomy 2010 History of left breast biopsy benign History of tonsillectomy and adenoidectomy History of tooth extraction History of wisdom tooth extraction Family History Mother Hearing loss Heart disease Hypertension Family history of diabetes mellitus Aunt Breast cancer Other No family history of adverse response to anesthesia No family history of bleeding disorder Social History Smoking Status: Former smoker Tobacco Type: Cigarettes packs per day: 0.5; Years Smoked: 7; Smoking End Date: Quit in 1963.; Second Hand Exposure: No; Do You Dip or Chew Tobacco: No; Tobacco Cessation Education Requested by Patient: No Hx Alcohol Use: Yes Alcohol type: wine Hx Substance Use: No Preferred Language: [place]ian Communication Ability: Effective Unit Aide Required: No Beliefs That Will Affect Care: Lutheran Lutheran Beliefs: Hinduism. marital status: / Current Living Situation: Alone and Other Current Living Situation Comment: Independent living AF[facility] ([facility]). current occupational status: retired Other Information That Helps Us Care for You: No Feels Safe at Home: Yes Safety Concerns: Feels Safe At This Time Assistive Devices: Glasses Physical Exam Physical Exam: On exam she is neurologically intact she is alert and oriented. Sensory is intact bilateral extremities. She has marked discomfort with any mobilization in the bed. Results & Data ([facility]) Vital Signs (Past 12 Hours) Vital Signs Temp Pulse Resp BP Pulse Ox 12/22/20 07:25 36.6 C 68 17 168/73 H 98 12/21/20 22:57 36.5 C 56 L 17 158/75 H 97 (1) Fracture of thoracic vertebra Encounter type: initial encounter Fracture morphology: unspecified fracture morphology Fracture type: closed Thoracic vertebra fracture level: T11 Qualified Code(s): S22.089A - Unspecified fracture of T11-T12 vertebra, initial encounter for closed fracture
[2020-12-22] MEDS: BACLOFEN 10 MG TAB PO PRN (16:23)
--- NOTE | 2020-12-22 17:54 | Hospitalist Progress Note ---
Date of Service December 22, 2020 Assessment & Plan (1) Fracture of thoracic vertebra: CT of thoracic spine reveals T11 vertebral body fracture and right lateral osteophyte fractures. His wrist fracture with concern for possible development of pseudoarthrosis T9-[address] lumbar spine shows multilevel degenerative disc disease. Acetaminophen 1000 3 times daily Oxycodone as needed Adding Miacalcin Lidoderm patch Dilaudid 0.25 mg IV every 3 hours as needed moderate pain Dilaudid 0.5 mg IV every 3 hours as needed severe pain NSS + KCl 20 mEq at 80 mils per hour Consult orthopedic spine surgery Dr. Mcbride, will fit for back brace. Consult PT/OT (2) Head injury: CT head without contrast is negative. CT cervical spine without contrast is negative Patient appears to be at low normal level of mentation per family in attendance. (3) Fall: Mechanical fall while playing [employer] Lab-pong (4) GERD (gastroesophageal reflux disease): GERD/esophageal dysphagia- Continue pantoprazole 40 mg daily (5) Esophageal dysphagia: See above (6) Diabetes mellitus: Hold Metformin. Placed on Accu-Cheks before meals and at bedtime with NovoLog coverage per scale (7) Hyperlipidemia: Continue rosuvastatin 10 mg p.o. weekly (8) Hypertension: Continue amlodipine, aspirin, atenolol and losartan with hold parameters (9) Diverticulitis: Concern imaging for diverticulitis CT scan abdomen pelvis 12/20/2020 IMPRESSION: 1. Mild acute sigmoid diverticulitis. No perforation or absc started the patient on Zosyn therapy at this time Admission and Anticipated Discharge Date Admission Date: December 20, 2020 Subjective T11 fracture is seen on CT scan with also some concern for diverticulitis. Patient has had prehospital diarrhea. Patient has no significant abdominal pain but she has significant back pain with movements does not want excalation of opiates Review of Systems Review of Systems: Mild distress and fatigue no headache, blurry or double vision no speech or swallowing issues no chest pain, pressure or palpitations no shortness of breath, cough or wheezes no abdominal pain, nausea or vomiting, persistent diarrhea prehospital no dysuria, hematuria or frequency no focal joint pain or swelling Persistent back pain without radiation no bruising, bleeding or rashes no focal signs of weakness or numbness or altered sensation no complaints of anxiety or depression.. Physical Exam Physical Exam: The patient appeared well nourished and normally developed. Vital signs as documented. Head exam is normocephalic atraumatic no scleral icterus Neck is without JVD, thyromegaly, or carotid bruits. Lungs are clear to auscultation, no focal loss of breath sounds Cardiac exam, Rhythm is regular.. No murmurs, rubs or gallops. Abdominal exam reveals normal bowel sounds, soft non tender, no masses Extremities are nonedematous and both pedal pulses are present Patient has point tenderness to her back at the appropriate level for T11 without radiation her lower extremities have bilateral reflexes and strength and sensation present distally Neurologic exam is alert and oriented, no focal loss of strength or sensation Skin is without bruises or rashes Psychologically is without concerns for anxiety or depression Results & Data Results & Data ([facility]) Vital Signs (Past 12 Hours) Vital Signs Temp Pulse Resp BP Pulse Ox 12/22/20 15:23 97.5 F L 59 L 18 134/70 93 12/22/20 07:25 97.9 F 68 17 168/73 H 98 PG Care Time/CCT Total # of Minutes Spent Total Time Spent with Patient: Total time spent is greater than 50% in coordination of care (as documented) at patient's floor/unit and/or counseling patient: Coding Level of Care Code 90984 Subseq Hosp Care Lvl 2 Diagnoses Fracture of thoracic vertebra S22.089A Encounter type: initial encounter Fracture morphology: unspecified fracture morphology Fracture type: closed Thoracic vertebra fracture level: T11 Head injury S09.90XA Encounter type: initial encounter Fall W19.XXXA Encounter type: initial encounter GERD (gastroesophageal reflux disease) K21.9 Esophageal dysphagia R13.10 Diabetes mellitus E11.9 Hyperlipidemia E78.5 Hypertension I10 Diverticulitis K57.92 (1) Fracture of thoracic vertebra Encounter type: initial encounter Fracture morphology: unspecified fracture morphology Fracture type: closed Thoracic vertebra fracture level: T11 Qualified Code(s): S22.089A - Unspecified fracture of T11-T12 vertebra, initial encounter for closed fracture (2) Head injury Encounter type: initial encounter Qualified Code(s): S09.90XA - Unspecified injury of head, initial encounter (3) Fall Encounter type: initial encounter Qualified Code(s): W19.XXXA - Unspecified fall, initial encounter
[2020-12-22] MEDS: HYDROmorphone INJ 0.5 MG/0.5 ML SYR IV PRN (20:06)
[2020-12-22] MEDS: SODIUM CHLORIDE 5% (MURO) OP OINT 3.5 GM TUBE OP SCH (20:09)
[2020-12-23] MEDS: HYDROmorphone INJ 0.5 MG/0.5 ML SYR IV PRN (03:26)
[2020-12-23 07:07] LABS: Basophils # (auto) 0.02 K/uL (0-0.2); Basophils % (auto) 0.2 %; Eosinophils # (auto) 0.23 K/uL (0-0.5); Eosinophils % (auto) 2.1 %; Hematocrit (blood only) 40.3 % (37-47); Hemoglobin 13.8 g/dL (12.0-16.0); Immature Granulocytes # (auto) 0.01 K/uL (0.00-0.02); Immature Granulocytes % (auto) 0.1 %; Lymphocytes # (auto) 2.31 K/uL (1.2-3.4); Lymphocytes % (auto) 21.2 %; Mean Corpuscular Hemoglobin 31.2 pg (25-34); Mean Corpuscular Hgb Conc 34.2 g/dL (32-36); Mean Corpuscular Volume 91.2 fL (80-100); Mean Platelet Volume 10.8 fL (7.4-10.4); Monocytes # (auto) 1.32 K/uL (0.11-0.59); Monocytes % (auto) 12.1 %; Neutrophils % (auto) 64.3 %; Platelet Count 243 K/uL (130-400); RDW Coefficient of Variation 13.2 % (11.5-14.5); RDW Standard Deviation 44.3 fL (36.4-46.3); Red Blood Count 4.42 M/uL (4.2-5.4); White Blood Count 10.89 K/uL (4.8-10.8)
[2020-12-23 07:35] LABS: BUN Creatinine Ratio 23.9 (10-20); Creatinine Clr Calc Pharmacy 45.9 ml/min; Est GFR (African American) 78.6; Est GFR (Non-African American) 67.8; Potassium 3.4 mmol/L (3.5-5.1)
[2020-12-23 07:37] LABS: Albumin Globulin Ratio 0.7 (0.9-2); Bilirubin,Total 0.7 mg/dl (0.2-1); Globulin 4.5 gm/dl (2.5-4.0); Total Protein 7.5 gm/dl (6.4-8.2)
[2020-12-23] MEDS: PIPERACILLIN/TAZOBACTAM 3.375 GM in DEXTROSE 5% 100 ML IV SCH ×3 (08:49→23:16)
[2020-12-23] MEDS: INSULIN ASPART 100 UNITS/ML 3 ML PEN SC SCH ×4 (08:49→20:34)
[2020-12-23] MEDS: ATENOLOL 50 MG TABLET PO SCH (08:50)
[2020-12-23] MEDS: CHOLECALCIFEROL 1,000 UNITS 25 MCG TAB PO SCH (08:50)
[2020-12-23] MEDS: ACETAMINOPHEN 500 MG TAB PO SCH ×3 (08:50→20:32)
[2020-12-23] MEDS: ASPIRIN 81 MG ECTAB PO SCH (08:51)
[2020-12-23] MEDS: LOSARTAN POTASSIUM 50 MG TAB PO SCH (08:51)
[2020-12-23] MEDS: SODIUM CHLORIDE 5% OP SOLN 15 ML BTL OP SCH (08:51)
[2020-12-23] MEDS: CALCITONIN SALMON NA 200 IU/AC 3.7 ML BTL SCH (08:51)
[2020-12-23] MEDS: SODIUM CHLORIDE 0.65% NA SOLN 45 ML (OCEAN) NAE SCH (08:51)
[2020-12-23] MEDS: amLODIPine BESYLATE 5 MG TAB PO SCH (08:51)
[2020-12-23] MEDS: LIDOCAINE 5% 1 PATCH TD SCH (08:51)
[2020-12-23] MEDS: PANTOprazole 40 MG TAB PO SCH (08:51)
--- NOTE | 2020-12-23 16:22 | Hospitalist Progress Note ---
Date of Service December 23, 2020 Assessment & Plan (1) Fracture of thoracic vertebra: CT of thoracic spine showed T11 vertebral body fracture and right lateral osteophyte fractures. Her wrist fracture with concern for possible development of pseudoarthrosis. T9-[address] lumbar spine shows multilevel degenerative disc disease. - Pain control with oral and topical medications. - Continue calcitonin - Consulted ortho spine -> Dr. Mcbride recommends TLSO brace when out of bed. No need while in bed. Follow up to ensure no progression of fracture. - Consult PT/OT -> Will likely need rehab. (2) Head injury: CT head without contrast is negative. CT cervical spine without contrast is negative. - Patient appears to be at baseline mental status. (3) Diabetes mellitus: A1c was 6.7% this month. - Hold metformin. - Sliding scale insulin (4) Hypertension: BP is 130/75 today. - Continue amlodipine, aspirin, atenolol, and losartan with hold parameters (5) Fall: Mechanical fall while playing ping-pong. (6) GERD (gastroesophageal reflux disease): - Continue pantoprazole 40 mg daily (7) Hyperlipidemia: - Continue rosuvastatin 10 mg p.o. weekly (8) Diverticulitis: Concern imaging for diverticulitis CT scan abdomen pelvis 12/20/2020 showed "Mild acute sigmoid diverticulitis." No perforation or absc. - Started the patient on Zosyn therapy at this time (9) DVT prophylaxis: SCDs - Low DVT risk per admission calculator Admission and Anticipated Discharge Date Admission Date: December 20, 2020 Subjective Doing well today. Not a lot of pain while in bed, but more with movement. Reports no fevers/chills, chest pain, shortness of breath, abdominal pain, nausea, or vomiting. Physical Exam Constitutional: WD/WN, vitals as above Eyes: EOM intact bilaterally; no conjunctival abnormality ENMT: external ear and nose normal, oropharynx normal Neck: trachea midline, no thyromegaly normal visual inspection Respiratory: normal respiratory effort, lungs clear to auscultation no respiratory distress Cardiovascular: RRR, no murmur, no edema Gastrointestinal (Abdomen): Inspection/Auscultation: abdomen normal to in spection; abdomen not distended Musculoskeletal: no cyanosis or clubbing, extremities motor strength 5/5 Skin: no rashes, warm and dry Neurologic: moves all extremities and awake Psychiatric: Orientation: alert, oriented to person and cooperative Results & Data Results & Data ([facility]) Vital Signs (Past 12 Hours) Vital Signs Temp Pulse Resp BP Pulse Ox Pulse Ox 12/23/20 15:26 36.7 C 58 L 16 132/76 95 12/23/20 14:10 94 12/23/20 07:42 36.8 C 63 16 168/88 H 93 PG Care Time/CCT Total # of Minutes Spent Total Time Spent with Patient: Total time spent is greater than 50% in coordination of care (as documented) at patient's floor/unit and/or counseling patient: Coding Level of Care Code 42951 Subseq Hosp Care Lvl 2 Diagnoses Fracture of thoracic vertebra S22.089A Encounter type: initial encounter Fracture morphology: unspecified fracture morphology Fracture type: closed Thoracic vertebra fracture level: T11 Head injury S09.90XA Encounter type: initial encounter Diabetes mellitus E11.9 Hypertension I10 Fall W19.XXXA Encounter type: initial encounter GERD (gastroesophageal reflux disease) K21.9 Hyperlipidemia E78.5 Diverticulitis K57.92 DVT prophylaxis Z29.9 (1) Fracture of thoracic vertebra Encounter type: initial encounter Fracture morphology: unspecified fracture morphology Fracture type: closed Thoracic vertebra fracture level: T11 Qualified Code(s): S22.089A - Unspecified fracture of T11-T12 vertebra, initial encounter for closed fracture (2) Head injury Encounter type: initial encounter Qualified Code(s): S09.90XA - Unspecified injury of head, initial encounter (3) Fall Encounter type: initial encounter Qualified Code(s): W19.XXXA - Unspecified fall, initial encounter
[2020-12-23] MEDS: oxyCODONE HCL IR 5 MG TAB (IMMEDIATE RELEASE) PO PRN (19:20)
[2020-12-23] MEDS: SODIUM CHLORIDE 5% (MURO) OP OINT 3.5 GM TUBE OP SCH (20:33)
[2020-12-24] MEDS: oxyCODONE HCL IR 5 MG TAB (IMMEDIATE RELEASE) PO PRN (03:11)
[2020-12-24 06:44] LABS: Hematocrit (blood only) 37.9 % (37-47); Hemoglobin 12.9 g/dL (12.0-16.0); Mean Corpuscular Volume 91.1 fL (80-100); Mean Platelet Volume 10.5 fL (7.4-10.4); Platelet Count 223 K/uL (130-400); RDW Coefficient of Variation 13.1 % (11.5-14.5); RDW Standard Deviation 43.1 fL (36.4-46.3); Red Blood Count 4.16 M/uL (4.2-5.4); White Blood Count 9.84 K/uL (4.8-10.8)
[2020-12-24 07:20] LABS: BUN Creatinine Ratio 27.8 (10-20); Calcium 8.8 mg/dl (8.5-10.1); Est GFR (African American) 89.4; Est GFR (Non-African American) 77.1; Magnesium 2.2 mg/dl (1.8-2.4); Potassium 3.5 mmol/L (3.5-5.1)
[2020-12-24] MEDS: ATENOLOL 50 MG TABLET PO SCH (08:02)
[2020-12-24] MEDS: ACETAMINOPHEN 500 MG TAB PO SCH ×3 (08:02→20:54)
[2020-12-24] MEDS: CHOLECALCIFEROL 1,000 UNITS 25 MCG TAB PO SCH (08:02)
[2020-12-24] MEDS: PANTOprazole 40 MG TAB PO SCH (08:03)
[2020-12-24] MEDS: LIDOCAINE 5% 1 PATCH TD SCH (08:03)
[2020-12-24] MEDS: LOSARTAN POTASSIUM 50 MG TAB PO SCH (08:03)
[2020-12-24] MEDS: amLODIPine BESYLATE 5 MG TAB PO SCH (08:03)
[2020-12-24] MEDS: CALCITONIN SALMON NA 200 IU/AC 3.7 ML BTL SCH (08:04)
[2020-12-24] MEDS: SODIUM CHLORIDE 5% OP SOLN 15 ML BTL OP SCH (08:04)
[2020-12-24] MEDS: SODIUM CHLORIDE 0.65% NA SOLN 45 ML (OCEAN) NAE SCH (08:04)
[2020-12-24] MEDS: PIPERACILLIN/TAZOBACTAM 3.375 GM in DEXTROSE 5% 100 ML IV SCH ×2 (08:08→16:34)
--- NOTE | 2020-12-24 08:50 | Orthopedic Progress Note ---
Date of Service December 24, 2020 Assessment & Plan (1) Fracture of thoracic vertebra: Admission and Anticipated Discharge Date Admission Date: December 20, 2020 At this time we would like to obtain standing AP and lateral thoracic x-rays with the brace in place. To assess for alignment. We will continue with his imaging to assure she is healing appropriately. Subjective Patient's back pain is improved with the brace. She denies any numbness or tingling to lower extremities. Physical Exam Physical Exam: Patient is sitting up in bed comfortably. Is good strength testing to lower extremities. Sensory intact. Results & Data ([facility]) Vital Signs (Past 12 Hours) Vital Signs Temp Pulse Resp BP Pulse Ox 12/24/20 07:06 36.7 C 60 18 169/76 H 95 12/23/20 22:57 36.7 C 59 L 16 161/76 H 94 (1) Fracture of thoracic vertebra Encounter type: initial encounter Fracture morphology: unspecified fracture morphology Fracture type: closed Thoracic vertebra fracture level: T11 Qualified Code(s): S22.089A - Unspecified fracture of T11-T12 vertebra, initial encounter for closed fracture
[2020-12-24] MEDS ORDERED: traMADol HCL 50 MG TABLET PO PRN (08:51)
[2020-12-24] MEDS: INSULIN ASPART 100 UNITS/ML 3 ML PEN SC SCH ×4 (09:00→20:57)
--- NOTE | 2020-12-24 10:13 | XRay Report ---
THORACIC SPINE 2 VIEWS CLINICAL HISTORY: T11 fracture. FINDINGS: AP and lateral standing views of the thoracic spine are correlated with thoracic spinal CT dated 12/20/2020. The skeletal structures are osteopenic. There is no radiographic evidence of fracture or malalignment. Vertebral body height and alignment are maintained. There is hyperkyphosis. Anterio r osteophytes are seen throughout. The transverse processes and pedicles are grossly intact as seen o n the frontal view. There is mild multilevel degenerative disc space narrowing. The lung parenchyma i s clear as imaged. IMPRESSION: 1. Osteopenia with degenerative change and hyperkyphosis as above. 2. The T11 fracture and the suspected osteophyte fracture seen by CT are not visualized by x-ray. Electronically signed by: Jaswinder Mancia M.D. 12/24/2020 10:11 AM
--- NOTE | 2020-12-24 15:14 | Hospitalist Progress Note ---
Date of Service December 24, 2020 Assessment & Plan (1) Fracture of thoracic vertebra: CT of thoracic spine showed T11 vertebral body fracture and right lateral osteophyte fractures. Her wrist fracture with concern for possible development of pseudoarthrosis. T9-[address] lumbar spine shows multilevel degenerative disc disease. - Pain control with oral and topical medications. - Continue calcitonin - Consulted ortho spine -> Dr. Mcbride recommends TLSO brace when out of bed. No need while in bed. Follow up to ensure no progression of fracture. - Consult PT/OT -> Will likely need rehab. - Thoracic x-rays today (12/24) did not show any malalignment per the radiology read. Will defer to Dr. Mcbride on repeat x-rays and follow-up. (2) Head injury: CT head without contrast is negative. CT cervical spine without contrast is negative. - Patient appears to be at baseline mental status. (3) Diabetes mellitus: A1c was 6.7% this month. - Hold metformin. - Sliding scale insulin -> Blood sugars have been 110 - 200 in the last 24 hours. (4) Hypertension: BP is 170/75 today. - Continue amlodipine, aspirin, atenolol, and losartan (5) Fall: Mechanical fall while playing ping-pong. (6) GERD (gastroesophageal reflux disease): - Continue pantoprazole 40 mg daily (7) Hyperlipidemia: - Continue rosuvastatin 10 mg p.o. weekly (8) Diverticulitis: Concern imaging for diverticulitis CT scan abdomen pelvis 12/20/2020 showed "Mild acute sigmoid diverticulitis." No perforation or absc. - Started the patient on Zosyn therapy at this time - WBC has normalized. Will go for a 10-day treatment (end date: 12/31/2020). Will transition to Augmentin on discharge. (9) DVT prophylaxis: Lovenox 40 mg SQ daily Admission and Anticipated Discharge Date Admission Date: December 20, 2020 Subjective Doing well today. With the brace on, her back pain is fairly mild. After being up and active with it most of the day, she requested it removed and is resting in bed when I see her. Reports no fevers/chills, chest pain, shortness of breath, abdominal pain, nausea, or vomiting. Physical Exam Constitutional: WD/WN, vitals as above Eyes: EOM intact bilaterally; no conjunctival abnormality ENMT: external ear and nose normal, oropharynx normal Neck: trachea midline, no thyromegaly normal visual inspection Respiratory: normal respiratory effort, lungs clear to auscultation no respiratory distress Cardiovascular: RRR, no murmur, no edema Gastrointestinal (Abdomen): Inspection/Auscultation: abdomen normal to inspection; abdomen not distended Musculoskeletal: no cyanosis or clubbing, extremities motor strength 5/5 Skin: no rashes, warm and dry Neurologic: moves all extremities and awake Psychiatric: Orientation: alert, oriented to person and cooperative Results & Data Results & Data ([facility]) Vital Signs (Past 12 Hours) Vital Signs Temp Pulse Resp BP Pulse Ox 12/24/20 07:06 36.7 C 60 18 169/76 H 95 PG Care Time/CCT Total # of Minutes Spent Total Time Spent with Patient: Total time spent is greater than 50% in coordination of care (as documented) at patient's floor/unit and/or counseling patient: Coding Level of Care Code 90849 Subseq Hosp Care Lvl 2 Diagnoses Fracture of thoracic vertebra S22.089A Encounter type: initial encounter Fracture morphology: unspecified fracture morphology Fracture type: closed Thoracic vertebra fracture level: T11 Head injury S09.90XA Encounter type: initial encounter Diabetes mellitus E11.9 Hypertension I10 Fall W19.XXXA Encounter type: initial encounter GERD (gastroesophageal reflux disease) K21.9 Hyperlipidemia E78.5 Diverticulitis K57.92 DVT prophylaxis Z29.9 (1) Fracture of thoracic vertebra Encounter type: initial encounter Fracture morphology: unspecified fracture morphology Fracture type: closed Thoracic vertebra fracture level: T11 Qualified Code(s): S22.089A - Unspecified fracture of T11-T12 vertebra, initial encounter for closed fracture (2) Head injury Encounter type: initial encounter Qualified Code(s): S09.90XA - Unspecified injury of head, initial encounter (3) Fall Encounter type: initial encounter Qualified Code(s): W19.XXXA - Unspecified fall, initial encounter
[2020-12-24] MEDS: SODIUM CHLORIDE 5% (MURO) OP OINT 3.5 GM TUBE OP SCH (20:55)
[2020-12-24] MEDS ORDERED: ENOXAPARIN INJ 40 MG/0.4 ML SYR SQ SCH (21:00)
--- NOTE | 2020-12-25 08:28 | Orthopedic Progress Note ---
Date of Service December 25, 2020 Assessment & Plan (1) Fracture of thoracic vertebra: Admission and Anticipated Discharge Date Admission Date: December 20, 2020 X-rays demonstrate excellent alignment of the thoracic spine. I am comfortable with her being discharged home today she understands that the brace is to be worn at all times and on the bed. She is not to lift more than 5 pounds. I had like to see her next week in my office for an x-ray of the thoracic spine. Subjective Patient's back pain is controlled. She is tolerating brace. She denies any lower extremity symptoms. Physical Exam Physical Exam: On exam she is in the chair at the bedside. Brace is in place and fit well. She is good strength testing. Results & Data ([facility]) Vital Signs (Past 12 Hours) Vital Signs Temp Pulse Resp BP Pulse Ox 12/25/20 07:04 36.7 C 57 L 18 166/78 H 93 12/24/20 23:35 36.4 C L 60 20 167/78 H 90 (1) Fracture of thoracic vertebra Encounter type: initial encounter Fracture morphology: unspecified fracture morphology Fracture type: closed Thoracic vertebra fracture level: T11 Qualified Code(s): S22.089A - Unspecified fracture of T11-T12 vertebra, initial encounter for closed fracture
[2020-12-25] MEDS: INSULIN ASPART 100 UNITS/ML 3 ML PEN SC SCH ×2 (08:40→12:59)
[2020-12-25] MEDS ORDERED: ROSUVASTATIN CALCIUM 10 MG TAB PO SCH (09:00)
[2020-12-25] MEDS: CALCITONIN SALMON NA 200 IU/AC 3.7 ML BTL SCH (09:02)
[2020-12-25] MEDS: ACETAMINOPHEN 500 MG TAB PO SCH ×2 (09:02→13:24)
[2020-12-25] MEDS: PANTOprazole 40 MG TAB PO SCH (09:02)
[2020-12-25] MEDS: ATENOLOL 50 MG TABLET PO SCH (09:03)
[2020-12-25] MEDS: amLODIPine BESYLATE 5 MG TAB PO SCH (09:03)
[2020-12-25] MEDS: LOSARTAN POTASSIUM 50 MG TAB PO SCH (09:04)
[2020-12-25] MEDS: ASPIRIN 81 MG ECTAB PO SCH (09:04)
[2020-12-25] MEDS: CHOLECALCIFEROL 1,000 UNITS 25 MCG TAB PO SCH (09:04)
[2020-12-25] MEDS: SODIUM CHLORIDE 5% OP SOLN 15 ML BTL OP SCH (09:05)
[2020-12-25] MEDS: SODIUM CHLORIDE 0.65% NA SOLN 45 ML (OCEAN) NAE SCH (09:05)
[2020-12-25] MEDS: LIDOCAINE 5% 1 PATCH TD SCH (09:06)
[2020-12-25] MEDS: PIPERACILLIN/TAZOBACTAM 3.375 GM in DEXTROSE 5% 100 ML IV SCH ×2 (09:10)
--- NOTE | 2020-12-25 17:48 | Discharge Summary ---
Date of Service December 25, 2020 Admission HPI Per Admitting Provider The patient is a 85-year-old female with a past medical history including GERD, esophageal dysphagia, hypertension, diabetes mellitus, and hyperlipidemia. She reportedly was playing ping-pong and fell backwards, hitting her back and head on the ground. She has not had any recent travels or sick exposures. She said no other falls or injuries. Principal Diagnosis Thoracic vertebral fracture Mild diverticulitis Discharge Exam Constitutional WD/WN, vitals as above Eyes EOM intact bilaterally; no conjunctival abnormality ENMT external ear and nose normal, oropharynx normal Neck trachea midline, no thyromegaly normal visual inspection Respiratory normal respiratory effort, lungs clear to auscultation no respiratory distress Cardiovascular RRR, no murmur, no edema Gastrointestinal (Abdomen) Inspection/Auscultation: abdomen normal to inspection; abdomen not distended Musculoskeletal no cyanosis or clubbing, extremities motor strength 5/5 Skin no rashes, warm and dry Neurologic moves all extremities and awake Psychiatric Orientation: alert, oriented to person and cooperative Discharge Data Allergies Allergy/AdvReac Type Severity Reaction Status Date / Time No Known Drug Allergies Allergy Unknown Verified 12/20/20 19:49 Consultations 12/20/20 21:28 ED Decision to Admit Stat 12/21/20 19:11 Consult Orthopedic Surgery Routine Ordered Studies 12/20/20 18:55 CT cervical spine wo con Stat CT head/brain wo con Stat CT lumbar spine wo con Stat CT thoracic spine wo con Stat 12/20/20 22:36 CT abd pelvis wo con Urgent Hospital Course (1) Fracture of thoracic vertebra: CT of thoracic spine showed T11 vertebral body fracture and right lateral osteophyte fractures. Her wrist fracture with concern for possible development of pseudoarthrosis. T9-[address] lumbar spine shows multilevel degenerative disc disease. - Pain control with oral and topical medications. - Consulted ortho spine -> Dr. Mcbride recommends TLSO brace when out of bed. No need while in bed. No lifting over 5 lbs. - Thoracic x-rays today (12/24) did not show any malalignment per the radiology read. Will see Dr. Mcbride in 1 week for repeat x-rays and follow-up. (2) Diverticulitis: Concern imaging for diverticulitis CT scan abdomen pelvis 12/20/2020 showed "Mild acute sigmoid diverticulitis." No perforation or absc. - Started the patient on Zosyn therapy at this time - WBC has normalized. Will go for a 10-day treatment (end date: 12/31/2020). Will transition to Augmentin on discharge. (3) Head injury: CT head without contrast is negative. CT cervical spine without contrast is negative. - Patient appears to be at baseline mental status. (4) Diabetes mellitus: A1c was 6.7% this month. - Held metformin. Return to this on discharge. (5) Hypertension: BP is 140/75 today. - Continue amlodipine, aspirin, atenolol, and losartan (6) Fall: Mechanical fall while playing [employer] (7) GERD (gastroesophageal reflux disease): - Continue pantoprazole 40 mg daily (8) Hyperlipidemia: - Continue rosuvastatin 10 mg p.o. weekly (9) DVT prophylaxis: Lovenox 40 mg SQ daily Total Time Total Time Spent Total Time Spent (In Minutes): 35 Discharge Plan Discharge Items Patient Disposition: Transfer Long Term Fac Reason For Visit: THORACIC VERTEBRAL FRACTURE Discharge Diagnosis: Vertebral fracture Activity: Per Instructions section Lifting: No more than 5 pounds Weightbearing: Full weightbearing Non-emergency contact: Primary Care Provider and Surgeon Call non-emergency contact if: your symptoms worsen and your pain is not controlled Follow-up/Referrals: Anmol Mcbride DO [Surgeon] - (Please see Dr. Mcbride in 1 week for repeat x- rays of your spine.) Cesilia Penaloza [Primary Care Provider] - Diet: Heart Healthy Addtl Attending Provider Instructions: Had mild diverticulitis on CT a/p, but no real symptoms. Abx x 10 days. Augmentin 875 mg x 6 more days (End date: 12/31/2020) Addtl Supervisor General Provider Instructions: Dr. Issac Mcbride's instructions: Patient is to have the TLSO brace on at all times when out of bed. She is not to lift more than 5 pounds. I would like to have her follow-up in my office in 1 week to obtain x-rays of the thoracic spine. Pending Studies at Discharge: No Stand-Alone Forms: [facility] Skilled Items Patient informed of condition?: No DNR: No Discharge Level of Care: Acute rehab Communicable Disease: No Discharge Prognosis: Stable Lines: None Urinary Catheter: No Medications and DC Order Prescriptions: New tramadol 50 mg Tablet 50 mg PO Q4H PRN (Reason: pain) Qty: 3 RF: 0 lidocaine 5 % Adhesive Patch,Medicated 1 patch transdermal QAM Qty: 0 RF: 0 amoxicillin-pot clavulanate [Augmentin] 875-125 mg tablet 1 tab PO BID Qty: 12 RF: 0 Continued pantoprazole 40 mg tablet,delayed release (DR/EC) 40 mg PO DAILY Qty: 90 RF: 3 losartan 100 mg tablet 100 mg PO QAM RF: 0 triamterene-hydrochlorothiazid 37.5-25 mg capsule 1 cap PO QAM RF: 0 atenolol 50 mg tablet 50 mg PO QAM RF: 0 amlodipine [Norvasc] 5 mg tablet 5 mg PO QAM RF: 0 potassium chloride 10 mEq capsule, extended release 30 meq PO DAILY RF: 0 cholecalciferol (vitamin D3) 1,000 unit capsule 1,000 units PO QAM RF: 0 aspirin [Adult Low Dose Aspirin] 81 mg tablet,delayed release (DR/EC) 81 mg PO 3XWK RF: 0 rosuvastatin [Crestor] 10 mg tablet 10 mg PO WK RF: 0 Cranberry Plus Vitamin C 140-100 mg capsule 1 cap PO WK RF: 0 sodium chloride 5 % drops 1 drops OP QAM RF: 0 sodium chloride 5 % ointment 1 appln OP HS RF: 0 acetaminophen [Acetaminophen Extra Strength] 500 mg Tablet 500 mg PO BID PRN (Reason: Pain) RF: 0 diphenhydramine-acetaminophen [Acetaminophen PM] 25-500 mg Tablet 1 tab PO HS RF: 0 sodium chloride [Saline Nasal] 0.65 % Aerosol,[place] 1 spray INTRANASAL QAM RF: 0 metformin 500 mg tablet extended release 24 hr 500 mg PO DAILY RF: 0 Discharge Orders: Discharge Order (Routine); Ordered 12/25/20 Ordered By: Michel Alvarez/Other Patient Handouts: High Blood Sugar (Hyperglycemia), Hypoglycemia (Low Blood Sugar), Managing Type 2 Diabetes, 5 Steps for Eating Healthier Admission Data Admit Date/Time: 12/20/20 22:35 Attending Provider: Michel Levin Admit Provider: Horacio Myles Primary Care Provider: Cesilia Penaloza Other Providers: Anmol Mcbride ; Levin,Michel J. Other Interventions: Discharge Summary Assessment (RN) Last Done: 12/25/20 12:53 Coding Level of Care Code D/C Day Management >30 mins Diagnoses Fracture of thoracic vertebra S22.089A Encounter type: initial encounter Fracture morphology: unspecified fracture morphology Fracture type: closed Thoracic vertebra fracture level: T11 Diverticulitis K57.92 Head injury S09.90XA Encounter type: initial encounter Diabetes mellitus E11.9 Hypertension I10 Fall W19.XXXA Encounter type: initial encounter GERD (gastroesophageal reflux disease) K21.9 Hyperlipidemia E78.5 DVT prophylaxis Z29.9
== END 2020-12-25 14:30 | DRG 552 ==
LOC: ED 16:26 → 3N 22:35 → SUATTDRO 22:35 → 3N 23:17

== ENCOUNTER 2022-10-31 13:57 | Inpatient (IN) ==
[2022-10-31] MEDS ORDERED: METOCLOPRAMIDE HCL INJ 5 MG/ML 2 ML VIAL IV STA (14:01)
[2022-10-31] MEDS ORDERED: SODIUM CHLORIDE 0.9% 1000ML 1,000 ML IV ONE (14:01)
--- NOTE | 2022-10-31 14:05 | Emergency Department Note ---
Impression & Plan Hypoxic, Acute pyelonephritis, Vomiting, Elevated troponin ED Provider Note NAME: CHET PALOMARES AGE: 87 SEX: F : 1935 ARRIVES VIA: Ambulance INFORMANT: Patient ED PROVIDER(S): Brad Méndez DO CHIEF COMPLAINT: abdominal pain and vomiting HPI: Patient is an 87-year-old female who presents to the ER for nausea, vomiting, and diaphoresis. Everything started after eating at the [employer]. She felt sick to her stomach and has been vomiting since. She does feel very weak with this. No headache or change in vision. No chest pain or shortness of breath. No dysuria, urgency, or frequency. No other exacerbating or remitting factors. She did have a bladder surgery at the end of September for prolapsed bladder. PAST MEDICAL HISTORY:See Below PAST SURGICAL HISTORY:See Below FAMILY HISTORY:See Below SOCIAL HISTORY:See Below HOME MEDICATIONS:See Below ALLERGIES:See Below VITALS:See Below PHYSICAL EXAMINATION: GENERAL: Sitting up in bed, alert, intermittently vomiting, disheveled EYE EXAM: normal conjunctiva. PERRL and EOM's grossly intact. OROPHARYNX: mucous membranes are moist NECK: supple, no nuchal rigidity, no adenopathy, non-tender LUNGS: Clear to auscultation. Normal chest wall mechanics HEART: no murmurs, S1 normal and S2 normal ABDOMEN: abdomen soft, non-tender, normo-active bowel sounds, no masses, no rebound or guarding. UPPER EXTREMITIES: upper extremities are grossly normal. LOWER EXTREMITIES: No pitting edema. NEURO EXAM: Normal sensorium, cranial nerves II-XII grossly intact, normal speech, no gross weakness of arms, no gross weakness of legs. MEDICAL DECISION MAKING: Patient is an 87-year-old female who presents to the ER for abdominal pain nausea vomiting. IV was established blood work was obtained. Patient was found to be slightly hypoxic with a pulse ox ranging from 88 to 92%. No history of asthma or COPD. She was placed on [address] angio of the chest was negative. Labs show leukocytosis of 15,000. No significant anemia. BMP was fairly unremarkable with exception of a calcium of 10.6. LFTs bilirubin was unremarkable. Troponin was slightly elevated at 16.4. Lipase was normal. UA with nitrates leuks whites and bacteria. CT shows inflammation of the ureter and kidney with the UA leukocytosis and vomiting I do favor is likely consistent with pyelonephritis. External records were reviewed. She was given IV fluids Rocephin and Zofran. She was updated bedside. Discussed with the hospitalist Dr. Carver for admission and for further work-up. Triage Nursing notes reviewed. Limited review of prior medical records performed Vital Signs: reviewed and remarkable for hypoxia Differential diagnosis: Differential diagnoses includes but is not limited to gastritis, peptic ulcer disease, GERD, gallbladder disease, pancreatitis, small bowel obstruction, appendicitis, diverticulitis, hernia, urinary tract infection, torsion, perfor ation, trauma, infectious. ER treatment provided: See below Diagnostics interpreted by me include EKG and cardiac monitoring as listed below: -Cardiac Monitoring: An order was placed for continuous cardiac monitoring. The monitor shows a rate of 80 with sinus rhythm. -ECG: none -Laboratory studies:Interpreted by me as stated above in MDM and shown below. Imaging studies: Xrays: As interpreted by me: Portable AP upright 1 view of the chest shows no f ocal infiltrate CTs show: CT angio of the chest and abdomen pelvis with questionable pyelonephritis Consultation(s): Discussed with Dr. Dedrick denny for further evaluation treatment and management Procedures:none Critical Care: I have personally spent 31 minutes of critical care time in the direct management of this patient. This includes bedside care, interpretation of diagnostic studies, and testing, discussion with consultants, patient, and family members, and other required patient management activities. This 31 minutes is in excess of all separately billable procedures. Past Med/Surg History Medical History Basal cell carcinoma of nose Diabetes mellitus Difficulty swallowing pills Hyperlipidemia Hypertension Osteoarthritis Surgical History History of appendectomy 1963 History of bilateral cataract extraction History of carpal tunnel surgery of left wrist History of colonoscopy with polypectomy History of dilatation and curettage History of hand surgery bone removal of left hand under thumb History of hysterectomy 2010 History of left breast biopsy benign History of tonsillectomy and adenoidectomy History of tooth extraction History of wisdom tooth extraction Family History Mother Hearing loss Heart disease Hypertension Family history of diabetes mellitus Aunt Breast cancer Other No family history of adverse response to anesthesia No family history of bleeding disorder Social History Smoking Status: Never smoker Tobacco Type: Cigarettes packs per day: 0.5; Second Hand Exposure: No; Hx Alcohol Use: Yes Alcohol type: wine Hx Substance Use: No Preferred Language: Filipino Communication Ability: Effective Nicker Required: No Beliefs That Will Affect Care: Samaritan Samaritan Beliefs: Yazidi. marital status: / Current Living Situation: Alone and Other Current Living Situation Comment: Independent living [facility] ([facility]). current occupational status: retired Feels Safe at Home: Yes Assistive Devices: Brace/Splint/Immobilizer and Walker Allergies Allergies Allergy/AdvReac Type Severity Reaction Status Date / Time No Known Drug Allergies Allergy Unknown Verified 12/20/20 19:49 erythromycin base AdvReac upset Verified 10/31/22 17:38 [From Erythrocin] stomach Home Meds Home Medications Medication Instructions Recorded Confirmed amlodipine 5 mg tablet (Norvasc) 5 mg PO QAM 06/30/19 10/31/22 aspirin 81 mg tablet,delayed 81 mg PO 3XWK 06/30/19 10/31/22 release (Adult Low Dose Aspirin) atenolol 50 mg tablet 50 mg PO QAM 06/30/19 10/31/22 cholecalciferol (vitamin D3) 25 1,000 units PO QAM 06/30/19 10/31/22 mcg (1,000 unit) capsule losartan 100 mg tablet 100 mg PO QAM 06/30/19 10/31/22 potassium chloride 10 mEq 30 meq PO DAILY 06/30/19 10/31/22 capsule,extended release rosuvastatin 10 mg tablet (Crestor) 10 mg PO WK 06/30/19 10/31/22 triamterene 37.5 1 cap PO QAM 06/30/19 10/31/22 mg-hydrochlorothiazide 25 mg capsule metformin 500 mg tablet,extended 500 mg PO DAILY 12/20/20 10/31/22 release 24 hr ibuprofen 600 mg tablet 600 mg PO Q8H PRN post-operative 10/31/22 10/31/22 pain pantoprazole 40 mg tablet,delayed 40 mg PO Q OTHER DAY 10/31/22 10/31/22 release Results & Data (ED) Vital Signs Vital Signs - 24 hr 10/31/22 14:07 10/31/22 14:44 10/31/22 15:00 Temperature 37.2 C Temperature Source Oral Pulse Rate 86 88 88 Pulse Rate from SpO2 Sensor 87 88 Respiratory Rate 20 21 21 Blood Pressure 136/64 Blood Pressure Mean 88 Pulse Oximetry 92 96 95 Oxygen Delivery Method Room Air Room Air Room Air Sepsis Recent Fever Within 48 Hours No Sepsis New/Unexplained Change in Mental Status No Sepsis Action Taken by Nursing No Action Required 10/31/22 15:36 10/31/22 16:24 10/31/22 17:53 Temperature 37.2 C Temperature Source Oral Pulse Rate 90 83 Pulse Rate from SpO2 Sensor Respiratory Rate 22 Blood Pressure Blood Pressure Mean Pulse Oximetry Oxygen Delivery Method Sepsis Recent Fever Within 48 Hours Sepsis New/Unexplained Change in Mental Status Sepsis Action Taken by Nursing 10/31/22 16:00 10/31/22 16:30 10/31/22 17:00 Temperature Temperature Source Pulse Rate 88 83 Pulse Rate from SpO2 Sensor 88 84 Respiratory Rate 18 20 Blood Pressure 140/72 Blood Pressure Mean 94 Pulse Oximetry 90 89 L Oxygen Delivery Method Sepsis Recent Fever Within 48 Hours Sepsis New/Unexplained Change in Mental Status Sepsis Action Taken by Nursing 10/31/22 17:00 10/31/22 17:30 10/31/22 18:00 Temperature Temperature Source Pulse Rate 84 97 H Pulse Rate from SpO2 Sensor 84 Respiratory Rate 30 H 23 Blood Pressure 149/64 H Blood Pressure Mean 92 Pulse Oximetry 97 Oxygen Delivery Method Sepsis Recent Fever Within 48 Hours Sepsis New/Unexplained Change in Mental Status Sepsis Action Taken by Nursing 10/31/22 18:00 Temperature Temperature Source Pulse Rate 89 Pulse Rate from SpO2 Sensor 89 Respiratory Rate 32 H Blood Pressure Blood Pressure Mean Pulse Oximetry 92 Oxygen Delivery Method Sepsis Recent Fever Within 48 Hours Sepsis New/Unexplained Change in Mental Status Sepsis Action Taken by Nursing Laboratory Data 10/31/22 14:10 10/31/22 14:10 Lab Results 10/31/22 10/31/22 10/31/22 Range/Units 14:10 14:10 15:38 WBC 15.29 H (4.8-10.8) K/ul RBC 3.99 L (4.20-5.40) M/uL Hgb 12.3 (12.0-16.0) g/dl Hct 36.5 L (37.0-47.0) % MCV 91.5 (80.0-100.0) fL MCH 30.8 (25.0-34.0) pg MCHC 33.7 (32.0-36.0) g/dL RDW Std Deviation 42.4 (36.4-46.3) fL RDW Coeff of Dylon 12.8 (11.5-14.5) % Plt Count 265 (130-400) K/uL MPV 11.0 (9.4-12.4) fL Immature Gran % (Auto) 0.8 % Neut % (Auto) 86.8 % Lymph % (Auto) 6.2 % [place] % (Auto) 4.7 % Eos % (Auto) 1.3 % Baso % (Auto) 0.2 % Neut # (Auto) 13.27 H (1.40-6.50) K/uL Lymph # (Auto) 0.95 L (1.2-3.4) K/uL [place] # (Auto) 0.72 H (0.11-0.59) K/uL Eos # (Auto) 0.20 (0-0.50) K/uL Baso # (Auto) 0.03 (0-0.2) K/uL Immature Gran # (Auto) 0.12 (0.01-0.20) K/uL Sodium 140 (136-145) mmol/L Potassium 3.9 (3.5-5.1) mmol/L Chloride 107 (98-107) mmol/L Carbon Dioxide 24 (21-32) mmol/L Anion Gap 9 (3-11) BUN 22 (6-23) mg/dl Creatinine 0.94 (0.6-1.2) mg/dl Est Cr Clr Drug Dosing 35.6 ml/min Est GFR ( Amer) 62.8 ml/min Est GFR (Non-Af Amer) 54.2 ml/min BUN/Creatinine Ratio 23.4 H (10-20) Glucose 180 H (70-99(Fasting)) mg/dl Calcium 10.6 H (8.5-10.1) mg/dl Total Bilirubin 0.5 (0.2-1.0) mg/dl AST 17 (13-39) U/L ALT 11 (7-52) U/L Alkaline Phosphatase 70 (34-104) U/L Troponin I High Sens 16.4 H (0-14) pg/ml Total Protein 7.3 (6.0-8.3) gm/dl Albumin 4.2 (3.4-5.0) gm/dl Globulin 3.1 (2.5-4.0) gm/dl Albumin/Globulin Ratio 1.4 (0.9-2) Lipase 17 (11-82) U/L Urine Color Yellow Urine Appearance Cloudy A (Clear) Urine pH 6.5 (4.5-7.5) Ur Specific [place] 1.016 (1.000-1.030) Urine Protein 3+ H (Negative) Urine Glucose (UA) Trace H (Negative) Urine Ketones Negative (Negative) Urine Blood 1+ H (Negative) Urine Nitrite Positive A (Negative) Urine Bilirubin Negative (Negative) Urine Urobilinogen Negative (Negative) Ur Leukocyte Esterase 1+ H (Negative) Urine WBC (Auto) >30 H (0-5) /hpf Urine RBC (Auto) 0-4 (0-4) /hpf U Hyaline Cast (Auto) 10-30 H (0-5) /lpf U Epithel Cells (Auto) 10-20 H (0-5) /lpf Urine Bacteria (Auto) 4+ H (Negative) Administered Medications Discontinued Medications Sodium Chloride (Nss 1000ml) 1,000 mls @ 999 mls/hr IV .Q1H1M ONE Stop: 10/31/22 15:01 Last Infusion: 10/31/22 16:00 Dose: 0 mls/hr Documented By: Admin: 10/31/22 14:28 Dose: 999 mls/hr Documented By: EDNA Ceftriaxone Sodium (Rocephin) 2,000 mg in 70 mls @ 140 mls/hr IV NOW STA Stop: 10/31/22 17:05 Last Infusion: 10/31/22 18:29 Dose: 0 mls/hr Documented By: Admin: 10/31/22 17:52 Dose: 140 mls/hr Documented By: AM Ioversol (Optiray 320 500ml) 112 ml IV ONCE ONE Stop: 10/31/22 16:14 Last Admin: 10/31/22 16:14 Dose: 112 ml Documented By: STEFAN Metoclopramide HCl (Metoclopramide Hcl Inj 5 Mg/Ml 2 Ml Vial) 10 mg IV NOW STA Stop: 10/31/22 14:02 Last Admin: 10/31/22 14:28 Dose: 10 mg Documented By: CRISD Imaging Data Radiologist's Impression: Abdomen/Pelvis CT 10/31/22 14:01 CT angio chest PE protocol, CT abd pelvis IV con only CT DOSE: 589.57 mGy.cm HISTORY: 87 years-old Female with PE. Acute shortness of breath with chest, abdominal pain and vomiting TECHNIQUE: Multiple CTA images of the chest were obtained after the intravenous administration of 112 ml Optiray. Coronal and sagittal MIPS were obtained from the axial data set and were submitted for review. CT abdomen and pelvis was also obtained with IV contrast. All measurements were obtained according to NASCET criteria. A dose lowering technique was utilized adhering to the principles of ALARA. COMPARISON: CT abdomen and pelvis 07/28/2022, renal ultrasound 08/04/2022. FINDINGS: CTA CHEST: Moderate cardiomegaly without pericardial effusion. Mild coronary artery calcifications. No thoracic aortic aneurysm or dissection. Unremarkable pulmonary artery. No pulmonary emboli are identified. CT CHEST: Unremarkable thyroid. Nonspecific mildly enlarged 1.5 cm right hilar lymph node on image 126. Trace right pleural effusion. No pneumothorax. Bronchial wall thickening with bibasilar mucous plugging. Mild bibasilar groundglass densities suggestive of atelectasis. No suspicious pulmonary nodules or masses. Central airways are patent. No acute fracture identified. Degenerative changes of the shoulders and spine. CT ABDOMEN/PELVIS: No pneumatosis or pneumoperitoneum. Unremarkable spleen, mildly atrophic pancreas and adrenal glands. Gallbladder is within normal limits. Unchanged mild extrahepatic biliary ductal dilation. A few scattered hepatic cysts redemonstrated. Patency of the hepatic and portal veins. Focal area of heterogeneous enhancement within the left kidney anterior interpolar distribution measuring 1.7 cm on image 152 appears unchanged. Mild urothelial thickening of the left renal collecting system and proximal ureter. 9 mm indeterminate intermediate density lesion of the upper pole right kidney is unchanged, image 186. Partial distention of the urinary bladder wall thickening. Pelvic floor relaxation redemonstrated. Atherosclerosis of the aorta retroaortic left renal vein. No lymphadenopathy identified. No bowel obstruction or bowel wall thickening. Moderate colonic fecal retention. Colonic diverticulosis. Appendix not visualized. Tiny fat filled umbilical hernia. Degenerative changes of the spine, pelvis and hips. IMPRESSION: 1. No acute intrathoracic abnormality. No pulmonary emboli identified. 2. No bowel obstruction or bowel wall thickening. 3. Colonic diverticulosis. 4. Unchanged 1.7 cm ill-defined area of heterogeneous enhancement within left kidney suggestive of scarring versus underlying lesion. As previously stated on the prior ultrasound, correlation with a nonemergent renal ultrasound rec ommended in approximately 3 months. 5. Pelvic floor relaxation. 6. Mild urothelial thickening of the left renal pelvis and renal collecting system. Correlate with urinalysis to exclude infection. 7. Additional findings as above. ACT 112: Negative or not required by law. The above report was generated using voice recognition software. It may contain grammatical, syntax or spelling errors. Electronically signed by: Trever French M.D. 10/31/2022 5:36 PM Chest CTA 10/31/22 14:01 CT angio chest PE protocol, CT abd pelvis IV con only CT DOSE: 589.57 mGy.cm HISTORY: 87 years-old Female with PE. Acute shortness of breath with chest, abdominal pain and vomiting TECHNIQUE: Multiple CTA images of the chest were obtained after the intravenous administration of 112 ml Optiray. Coronal and sagittal MIPS were obtained from the axial data set and were submitted for review. CT abdomen and pelvis was also obtained with IV contrast. All measurements were obtained according to NASCET criteria. A dose lowering technique was utilized adhering to the principles of ALARA. COMPARISON: CT abdomen and pelvis 07/28/2022, renal ultrasound 08/04/2022. FINDINGS: CTA CHEST: Moderate cardiomegaly without pericardial effusion. Mild coronary artery calcifications. No thoracic aortic aneurysm or dissection. Unremarkable pulmonary artery. No pulmonary emboli are identified. CT CHEST: Unremarkable thyroid. Nonspecific mildly enlarged 1.5 cm right hilar lymph node on image 126. Trace right pleural effusion. No pneumothorax. Bronchial wall thickening with bibasilar mucous plugging. Mild bibasilar groundglass densities suggestive of atelectasis. No suspicious pulmonary nodules or masses. Central airways are patent. No acute fracture identified. Degenerative changes of the shoulders and spine. CT ABDOMEN/PELVIS: No pneumatosis or pneumoperitoneum. Unremarkable spleen, mildly atrophic pancreas and adrenal glands. Gallbladder is within normal limits. Unchanged mild extrahepatic biliary ductal dilation. A few scattered hepatic cysts redemonstrated. Patency of the hepatic and portal veins. Focal area of heterogeneous enhancement within the left kidney anterior interpolar distribution measuring 1.7 cm on image 152 appears unchanged. Mild urothelial thickening of the left renal collecting system and proximal ureter. 9 mm indeterminate intermediate density lesion of the upper pole right kidney is unchanged, image 186. Partial distention of the urinary bladder wall thickening. Pelvic floor relaxation redemonstrated. Atherosclerosis of the aorta retroaortic left renal vein. No lymphadenopathy identified. No bowel obstruction or bowel wall thickening. Moderate colonic fecal retention. Colonic diverticulosis. Appendix not visualized. Tiny fat filled umbilical hernia. Degenerative changes of the spine, pelvis and hips. IMPRESSION: 1. No acute intrathoracic abnormality. No pulmonary emboli identified. 2. No bowel obstruction or bowel wall thickening. 3. Colonic diverticulosis. 4. Unchanged 1.7 cm ill-defined area of heterogeneous enhancement within left kidney suggestive of scarring versus underlying lesion. As previously stated on the prior ultrasound, correlation with a nonemergent renal ultrasound recommended in approximately 3 months. 5. Pelvic floor relaxation. 6. Mild urothelial thickening of the left renal pelvis and renal collecting system. Correlate with urinalysis to exclude infection. 7. Additional findings as above. ACT 112: Negative or not required by law. The above report was generated using voice recognition software. It may contain grammatical, syntax or spelling errors. Electronically signed by: Trever French M.D. 10/31/2022 5:36 PM Chest X-Ray 10/31/22 14:01 XR chest 1V portable HISTORY: 87 years-old Female vomiting acute chest pain with nausea and vomiting COMPARISON: Thoracic spine radiographs 12/24/2020 TECHNIQUE: AP view of the chest FINDINGS: Cardiac mediastinal and hilar silhouettes are within normal limits. Mild right hemidiaphragmatic elevation. No pneumothorax, large pleural effusion, overt pulmonary edema or lobar airspace consolidation. Degenerative changes of the shoulders and spine. IMPRESSION: No acute process. ACT 112: Negative or not required by law. The above report was generated using voice recognition software. It may contain grammatical, syntax or spelling errors. Electronically signed by: Trever French M.D. 10/31/2022 2:25 PM Discharge Plan Visit Data Chief Complaint: Illness Stated Complaint: ILLNESS ED Provider: Brad Méndez Discharge Problem: Hypoxic, Acute pyelonephritis, Vomiting, Elevated troponin Forms Stand Alone Forms: My [facility] Prescriptions Prescriptions: No Action losartan 100 mg tablet 100 mg PO QAM triamterene-hydrochlorothiazid 37.5-25 mg capsule 1 cap PO QAM atenolol 50 mg tablet 50 mg PO QAM amlodipine [Norvasc] 5 mg tablet 5 mg PO QAM potassium chloride 10 mEq capsule, extended release 30 meq PO DAILY cholecalciferol (vitamin D3) 1,000 unit capsule 1,000 units PO QAM aspirin [Adult Low Dose Aspirin] 81 mg tablet,delayed release (DR/EC) 81 mg PO 3XWK rosuvastatin [Crestor] 10 mg tablet 10 mg PO WK Patient Comments: 10 mg PO once weekly (Wednesday); metformin 500 mg tablet extended release 24 hr 500 mg PO DAILY pantoprazole 40 mg tablet,delayed release (DR/EC) 40 mg PO Q OTHER DAY ibuprofen 600 mg Tablet 600 mg PO Q8H PRN (Reason: post-operative pain) Referrals Referrals: [facility] Penaloza [Non-Staff] -
--- NOTE | 2022-10-31 14:26 | XRay Report ---
XR chest 1V portable HISTORY: 87 years-old Female vomiting acute chest pain with nausea and vomiting COMPARISON: Thoracic spine radiographs 12/24/2020 TECHNIQUE: AP view of the chest FINDINGS: Cardiac mediastinal and hilar silhouettes are within normal limits. Mild right hemidiaphragmatic elev ation. No pneumothorax, large pleural effusion, overt pulmonary edema or lobar airspace consolidation . Degenerative changes of the shoulders and spine. IMPRESSION: No acute process. ACT 112: Negative or not required by law. The above report was generated using voice recognition software. It may contain grammatical, syntax o r spelling errors. Electronically signed by: Trever French M.D. 10/31/2022 2:25 PM
[2022-10-31 14:41] LABS: Basophils # (auto) 0.03 K/uL (0-0.2); Basophils % (auto) 0.2 %; Eosinophils % (auto) 1.3 %; Hematocrit (blood only) 36.5 % (37.0-47.0); Hemoglobin 12.3 g/dl (12.0-16.0); Immature Granulocytes # (auto) 0.12 K/uL (0.01-0.20); Immature Granulocytes % (auto) 0.8 %; Lymphocytes # (auto) 0.95 K/uL (1.2-3.4); Lymphocytes % (auto) 6.2 %; Mean Corpuscular Hemoglobin 30.8 pg (25.0-34.0); Mean Corpuscular Hgb Conc 33.7 g/dL (32.0-36.0); Mean Corpuscular Volume 91.5 fL (80.0-100.0); Monocytes # (auto) 0.72 K/uL (0.11-0.59); Monocytes % (auto) 4.7 %; Neutrophils # (auto) 13.27 K/uL (1.40-6.50); Neutrophils % (auto) 86.8 %; Platelet Count 265 K/uL (130-400); RDW Coefficient of Variation 12.8 % (11.5-14.5); RDW Standard Deviation 42.4 fL (36.4-46.3); Red Blood Count 3.99 M/uL (4.20-5.40); White Blood Count 15.29 K/ul (4.8-10.8)
[2022-10-31 14:52] LABS: Albumin Globulin Ratio 1.4 (0.9-2); Albumin Level 4.2 gm/dl (3.4-5.0); BUN Creatinine Ratio 23.4 (10-20); Bilirubin,Total 0.5 mg/dl (0.2-1.0); Calcium 10.6 mg/dl (8.5-10.1); Creatinine Clr Calc Pharmacy 35.6 ml/min; Est GFR (African American) 62.8 ml/min; Est GFR (Non-African American) 54.2 ml/min; Globulin 3.1 gm/dl (2.5-4.0); Potassium 3.9 mmol/L (3.5-5.1); Total Protein 7.3 gm/dl (6.0-8.3)
[2022-10-31 14:59] LABS: Troponin I High Sensitivity 16.4 pg/ml (0-14)
[2022-10-31 16:07] LABS: Appearance Urine Cloudy (Clear); Bacteria Urine Automated 4+ (Negative); Bilirubin Urine Negative (Negative); Blood Urine 1+ (Negative); Color Urine Yellow; Glucose Urine UA Trace (Negative); Ketones Urine Negative (Negative); Leukocyte Esterase Urine 1+ (Negative); Nitrite Urine Positive (Negative); Protein Urine 3+ (Negative); RBC Urine Automated 0-4 /hpf (0-4); Specific Gravity Urine 1.016 (1.000-1.030); Urobilinogen Urine Negative (Negative); WBC Urine Automated >30 /hpf (0-5); pH Urine 6.5 (4.5-7.5)
[2022-10-31] MEDS ORDERED: OPTIRAY 320 500ml IV ONE (16:13)
[2022-10-31] MEDS ORDERED: cefTRIAXone SODIUM 2,000 MG/70 ML BAG IV STA (16:36)
--- NOTE | 2022-10-31 17:39 | CT Scan Report ---
CT angio chest PE protocol, CT abd pelvis IV con only CT DOSE: 589.57 mGy.cm HISTORY: 87 years-old Female with PE. Acute shortness of breath with chest, abdominal pain and vomi ting TECHNIQUE: Multiple CTA images of the chest were obtained after the intravenous administration of 112 ml Optiray. Coronal and sagittal MIPS were obtained from the axial data set and were submitted for review. CT abdomen and pelvis was also obtained with IV contrast. All measurements were obtained acco rding to NASCET criteria. A dose lowering technique was utilized adhering to the principles of ALARA. COMPARISON: CT abdomen and pelvis 07/28/2022, renal ultrasound 08/04/2022. FINDINGS: CTA CHEST: Moderate cardiomegaly without pericardial effusion. Mild coronary artery calcifications. No thoracic aortic aneurysm or dissection. Unremarkable pulmonary artery. No pulmonary emboli are identified. CT CHEST: Unremarkable thyroid. Nonspecific mildly enlarged 1.5 cm right hilar lymph node on image 126. Trace r ight pleural effusion. No pneumothorax. Bronchial wall thickening with bibasilar mucous plugging. Mil d bibasilar groundglass densities suggestive of atelectasis. No suspicious pulmonary nodules or belen s. Central airways are patent. No acute fracture identified. Degenerative changes of the shoulders an d spine. CT ABDOMEN/PELVIS: No pneumatosis or pneumoperitoneum. Unremarkable spleen, mildly atrophic pancreas and adrenal glands. Gallbladder is within normal limits. Unchanged mild extrahepatic biliary ductal dilation. A few scat tered hepatic cysts redemonstrated. Patency of the hepatic and portal veins. Focal area of heterogeneous enhancement within the left kidney anterior interpolar distribution measu ring 1.7 cm on image 152 appears unchanged. Mild urothelial thickening of the left renal collecting s ystem and proximal ureter. 9 mm indeterminate intermediate density lesion of the upper pole right kid santana is unchanged, image 186. Partial distention of the urinary bladder wall thickening. Pelvic floor relaxation redemonstrated. Atherosclerosis of the aorta retroaortic left renal vein. No lymphadenopat hy identified. No bowel obstruction or bowel wall thickening. Moderate colonic fecal retention. Colon ic diverticulosis. Appendix not visualized. Tiny fat filled umbilical hernia. Degenerative changes of the spine, pelvis and hips. IMPRESSION: 1. No acute intrathoracic abnormality. No pulmonary emboli identified. 2. No bowel obstruction or bowel wall thickening. 3. Colonic diverticulosis. 4. Unchanged 1.7 cm ill-defined area of heterogeneous enhancement within left kidney suggestive of sc arring versus underlying lesion. As previously stated on the prior ultrasound, correlation with a non emergent renal ultrasound recommended in approximately 3 months. 5. Pelvic floor relaxation. 6. Mild urothelial thickening of the left renal pelvis and renal collecting system. Correlate with ur inalysis to exclude infection. 7. Additional findings as above. ACT 112: Negative or not required by law. The above report was generated using voice recognition software. It may contain grammatical, syntax o r spelling errors. Electronically signed by: Trever French M.D. 10/31/2022 5:36 PM
[2022-10-31] MEDS ORDERED: GLUCOSE 10 TAB/TUBE PO PRN (19:16)
[2022-10-31] MEDS ORDERED: GLUCAGON FOR INJ 1 MG VIAL SQ PRN (19:16)
[2022-10-31] MEDS ORDERED: DEXTROSE 50% 50 ML SYRINGE IV PRN (19:16)
[2022-10-31] MEDS ORDERED: CARBOHYDRATES FOR HYPOGLYCEMIA PO PRN (19:16)
[2022-10-31] MEDS ORDERED: GLUCOSE 40% GEL 15 GM TUBE PO PRN (19:16)
--- NOTE | 2022-10-31 19:19 | History & Physical Report ---
Date of Service October 31, 2022 Assessment & Plan (1) Acute pyelonephritis: Plan: Complicated UTI CTA/P: Urothelial thickening of left renal pelvis and renal collecting system. UA infected appearing, UC pending Received Rocephin, NSS on admission Leukocytosis to 15 Creatinine with normal baseline, admitting creatinine 0.94 Sodium/potassium normal CXR: No acute findings CTA chest: No pulmonary emboli. Left kidney 1.77 and under ill-defined area o f enhancement which can have follow-up ultrasound performed not emergently/in approximately 3 months. - Pt with rigors. ABx given prior to BC collection. Deferred 2/2 likelihood of GNB and sterile cx. If patient is febrile/has recurrent rigors repeat blood cultures Elevated troponin 16.4, suspect demand in the setting of UTI Patient clinically without chest pain Troponins trended - Pt denies hx of heart problems/failure DM Glucose 180 on admit Hold home metformin Basal bolus weight-based SSI Hypertension Continue home antihypertensives, normotensive on admit Continue aspirin 3 times weekly DVT PPx: Heparin Dispo: Med Tele CODE STATUS: DNR, discussed w pt Diet: DM (2) Elevated troponin: (3) Diabetes mellitus: (4) Hypertension: (5) Hyperlipidemia: (6) GERD (gastroesophageal reflux disease): (7) Esophageal dysphagia: History of Present Illness Primary Care Provider: Patricio Tenorio MD Ruby is a 87-year-old female with a past medical history of hypertension, hyperlipidemia, GERD, diverticulitis, and esophageal dysphagia who presented to the emergency department with nausea/vomiting/diaphoresis [place] Had nausea and was sick to her stomach and felt overall weak. In the ER she was found to have a leukocytosis and infected appearing UA. CT of the abdomen pelvis shows thickening of the left renal pelvis and collecting system which in conjunction with infected appearing UA was suspicious for pyelonephritis. Patient has been recommended for admission for pyelonephritis. [employer] 830am. Had breakfast and went home, but then went home and was very cold and had shaking chills. [place] a [place] resident. Was concerned about shaking chills. N/V this morning, nonbloody/nonbilious. Has had loose bowels, dark brown no black/red BMs No fevers. Son found her at home after she was feeling ill and noted that she had violent shaking with chills which occur intermittently, but have not recurred since receiving antibiotics in the ER. No flank pain. No ab tenderness. did not take any [id number] attempted treatments. Took a.m. meds except for potassium No chest pain, no chest pressure. No orthopnea. No shortness of breath NO dysuria, no polyuria Had a bladder uplift with Dr. Kirstie Dias Medical History: Reviewed Medications: Reviewed Surgical History: Reviewed Allergies: Reviewed Social History: Reviewed Code Status: DNR/DNI Allergies Allergy/AdvReac Type Severity Reaction Status Date / Time No Known Drug Allergies Allergy Unknown Verified 12/20/20 19:49 erythromycin base AdvReac upset Verified 10/31/22 17:38 [From Erythrocin] stomach Home Medications Medication Instructions Recorded Confirmed Type amlodipine 5 mg tablet (Norvasc) 5 mg PO QAM 06/30/19 10/31/22 History aspirin 81 mg tablet,delayed 81 mg PO 3XWK 06/30/19 10/31/22 History release (Adult Low Dose Aspirin) atenolol 50 mg tablet 50 mg PO QAM 06/30/19 10/31/22 History cholecalciferol (vitamin D3) 25 1,000 units PO QAM 06/30/19 10/31/22 History mcg (1,000 unit) capsule losartan 100 mg tablet 100 mg PO QAM 06/30/19 10/31/22 History potassium chloride 10 mEq 30 meq PO DAILY 06/30/19 10/31/22 History capsule,extended release rosuvastatin 10 mg tablet (Crestor) 10 mg PO WK 06/30/19 10/31/22 History triamterene 37.5 1 cap PO QAM 06/30/19 10/31/22 History mg-hydrochlorothiazide 25 mg capsule metformin 500 mg tablet,extended 500 mg PO DAILY 12/20/20 10/31/22 History release 24 hr ibuprofen 600 mg tablet 600 mg PO Q8H PRN post-operative 10/31/22 10/31/22 History pain pantoprazole 40 mg tablet,delayed 40 mg PO Q OTHER DAY 10/31/22 10/31/22 History release Past Med/Surg History Medical History Basal cell carcinoma of nose Diabetes mellitus Difficulty swallowing pills Hyperlipidemia Hypertension Osteoarthritis Surgical History History of appendectomy 1963 History of bilateral cataract extraction History of carpal tunnel surgery of left wrist History of colonoscopy with polypectomy History of dilatation and curettage History of hand surgery bone removal of left hand under thumb History of hysterectomy 2010 History of left breast biopsy benign History of tonsillectomy and adenoidectomy History of tooth extraction History of wisdom tooth extraction Family History Mother Hearing loss Heart disease Hypertension Family history of diabetes mellitus Aunt Breast cancer Other No family history of adverse response to anesthesia No family history of bleeding disorder Social History Smoking Status: Never smoker Tobacco Type: Cigarettes packs per day: 0.5; Second Hand Exposure: No; Hx Alcohol Use: Yes Alcohol type: wine Hx Substance Use: No Preferred Language: Welsh Communication Ability: Effective Rn Recruitment Required: No Beliefs That Will Affect Care: [facility] Beliefs: Yarsani. marital status: / Current Living Situation: Alone and Other Current Living Situation Comment: [place] [facility] [place] current occupational status: retired Feels Safe at Home: Yes Assistive Devices: Brace/Splint/Immobilizer and Walker Review of Systems Review of Systems: All systems reviewed & are unremarkable except as noted in Subjective Physical Exam Physical Exam: General: A&Ox3. NAD. Cooperative. HEENT: Atraumatic, normocephalic. Pupils equal and reactive to light. EoM intact, vision/hearing intact Pulm: CTAB A&P. -wheezes, -rales, -rhonchi. Symmetrical chest rise. No increased work of breathing. No respiratory distress. Cardiac: RRR, -mrg. Radial pulses intact and symmetrical. Abdominal: Nontender, nondistended, soft. BS present. Ext: warm, dry, moving all extremities equally Results & Data Results & Data ([facility]) Vital Signs (Past 12 Hours) Vital Signs Temp Pulse Resp BP Pulse Ox O2 Del Method 10/31/22 18:00 89 32 H 92 10/31/22 18:00 149/64 H 10/31/22 17:30 97 H 23 10/31/22 17:00 84 30 H 97 10/31/22 17:00 140/72 10/31/22 16:30 83 20 89 L 10/31/22 16:00 88 18 90 10/31/22 17:53 37.2 C 10/31/22 16:24 83 10/31/22 15:36 90 22 10/31/22 15:00 88 21 95 Room Air 10/31/22 14:44 88 21 96 Room Air 10/31/22 14:07 37.2 C 86 20 136/64 92 Room Air PG Care Time/CCT Total # of Minutes Spent Total Time Spent with Patient: Total time spent is greater than 50% in coordination of care (as documented) at patient's floor/unit and/or counseling patient: Coding Level of Care Code 63233 INT INP/OBS CARE MIN Diagnoses Acute pyelonephritis N10 Elevated troponin R77.8 Diabetes mellitus E11.9 Hypertension I10 Hyperlipidemia E78.5 GERD (gastroesophageal reflux disease) K21.9 Esophageal dysphagia R13.10
[2022-10-31] MEDS ORDERED: IBUPROFEN 600 MG TAB PO PRN (22:23)
[2022-10-31] MEDS: LANTUS PER UNIT CHARGE SQ SCH (22:43)
[2022-10-31] MEDS: INSULIN ASPART PER UNIT SC SCH (22:43)
[2022-11-01] MEDS: HEPARIN SOD 5,000 UNIT/0.5 ML VIAL SQ SCH ×3 (00:35→21:24)
[2022-11-01 04:15] LABS: Basophils # (auto) 0.04 K/uL (0-0.2); Basophils % (auto) 0.2 %; Eosinophils # (auto) 0.03 K/uL (0-0.50); Eosinophils % (auto) 0.2 %; Hematocrit (blood only) 31.9 % (37.0-47.0); Hemoglobin 10.7 g/dl (12.0-16.0); Immature Granulocytes # (auto) 0.19 K/uL (0.01-0.20); Lymphocytes # (auto) 2.75 K/uL (1.2-3.4); Lymphocytes % (auto) 14.4 %; Mean Corpuscular Hemoglobin 31.1 pg (25.0-34.0); Mean Corpuscular Hgb Conc 33.5 g/dL (32.0-36.0); Mean Corpuscular Volume 92.7 fL (80.0-100.0); Monocytes # (auto) 2.26 K/uL (0.11-0.59); Monocytes % (auto) 11.9 %; Neutrophils % (auto) 72.3 %; Platelet Count 237 K/uL (130-400); RDW Coefficient of Variation 13.1 % (11.5-14.5); RDW Standard Deviation 44.3 fL (36.4-46.3); Red Blood Count 3.44 M/uL (4.20-5.40); White Blood Count 19.07 K/ul (4.8-10.8)
[2022-11-01 04:24] LABS: BUN Creatinine Ratio 25.5 (10-20); Calcium 9.4 mg/dl (8.5-10.1); Est GFR (African American) 56.9 ml/min; Est GFR (Non-African American) 49.1 ml/min
[2022-11-01] MEDS: TRIAMTERENE/HCTZ 37.5/25MG CAP PO SCH (07:32)
[2022-11-01] MEDS: POTASSIUM CHLORIDE 10 MEQ TABCR PO SCH (07:32)
--- NOTE | 2022-11-01 07:32 | Hospitalist Progress Note ---
Date of Service November 01, 2022 Assessment & Plan (1) Acute pyelonephritis: Plan: 87yo female with past medical history of hypertension, diabetes, hyperlipidemia, GERD presented with nausea, vomiting, diaphoresis. Work-up was consistent with UTI. Complicated UTI/Pyelonephritis CTA/P: Urothelial thickening of left renal pelvis and renal collecting system. UA infected appearing UCx growing gram-negative bacilli further speciation/sensitivities pending Received Rocephin 2 g in ED, continue daily Leukocytosis to 15 (2/) --> 19 (2/) Creatinine with normal baseline, normal on admission Sodium/potassium normal CXR: No acute findings CTA chest: No pulmonary emboli. Left kidney 1.77 and under ill-defined area of enhancement which can have follow-up ultrasound performed not emergently/in approximately 3 months. Pt with rigors on arrival. ABx given prior to BC collection. Deferred 2/2 likelihood of GNB and sterile cx. If patient is febrile/has recurrent rigors repeat blood cultures Elevated troponin 16.4 initially, peaked at 78.1, then downtrended Suspect demand in the setting of UTI Patient clinically without chest pain - Pt denies hx of heart problems/failure DM Glucose 180 on admit Hold home metformin Basal/bolus weight-based SSI Hypertension Continue home antihypertensives, normotensive on admit Continue aspirin 3 times weekly Hyperlipidemia Takes Crestor 10 mg on Wednesdays Continue GERD Pantoprazole 40 mg every 48 hours DVT PPx: Heparin Dispo: Med Tele CODE STATUS: DNR, discussed w pt Diet: DM (2) Elevated troponin: (3) Diabetes mellitus: (4) Hypertension: (5) Hyperlipidemia: (6) GERD (gastroesophageal reflux disease): (7) Esophageal dysphagia: Admission and Anticipated Discharge Date Admission Date: October 31, 2022 Supervising Physician Co-Signing Physician Notes I personally examined the patient and verified all hyde points of history and exam, discussed case, and agree with decision making with Dr Montaño. Feeling better overall. No further chills, nausea vomiting seems to have improved. Extensive discussion with patient on diagnosis and plan. Vitals noted, in general she is awake and alert pleasant no distress. HEENT normocephalic atraumatic mucous membranes moist. Breathing unlabored no accessory muscle use good effort. Skin shows no rashes no pallor or icterus. Neuro without focal deficits. Pyelonephritis with possible sepsis present on admissiondiscussed with patient that while cystitis will always come with lower urinary tract symptoms, surprisingly up to 20% of pyelonephritis will just have nausea/vomiting and constitutional symptomswhich seems to be the case with her. Continue ceftr iaxone pending full identification and sensitivities on urine culture. Hopefully home in the next day or so on p.o. antibiotics once final sensitivities are back. DVT prophylaxisheparin SQ Subjective Seen at bedside this AM. Patient feeling well says that her chills and tremors have now resolved. States that she was surprised to hear she had a urinary tract infection as she did not have any symptoms consistent with it no dysuria, frequency, urgency. Denies fever, nausea, vomiting, abdominal pain, flank pain, chest pain, palpitations, shortness of breath, headache, dizziness. Review of Systems Review of Systems: All systems reviewed & are unremarkable except as noted in Subjective Physical Exam Physical Exam: General: A&Ox3. NAD. Cooperative. HEENT: Atraumatic, normocephalic. Pupils equal and reactive to light. EoM intact, vision/hearing intact Pulm: CTAB A&P. -wheezes, -rales, -rhonchi. Symmetrical chest rise. No increased work of breathing. No respiratory distress. Cardiac: RRR, -mrg. Radial pulses intact and symmetrical. Abdominal: Mild tenderness to deep palpation suprapubically, nondistended, soft. BS present. Ext: warm, dry, moving all extremities equally Results & Data Results & Data ([facility]) Vital Signs (Past 12 Hours) Vital Signs Temp Pulse Pulse Pulse Resp BP BP 11/01/22 07:12 61 11/01/22 02:40 36.9 C 64 18 135/64 10/31/22 23:33 70 10/31/22 22:45 37.5 C 70 16 120/62 10/31/22 22:44 10/31/22 22:16 37.5 C 70 18 120/62 10/31/22 21:38 71 20 130/65 Pulse Ox O2 Del Method 11/01/22 07:12 11/01/22 02:40 93 Room Air 10/31/22 23:33 10/31/22 22:45 94 Room Air 10/31/22 22:44 95 Nasal Cannula 10/31/22 22:16 94 Room Air 10/31/22 21:38 95 Resident Activity Tracking Resident Involvement: Resident Care Provided Care Provided: Adult Hospital Medicine
[2022-11-01] MEDS: amLODIPine BESYLATE 5 MG TAB PO SCH (07:33)
[2022-11-01] MEDS: CHOLECALCIFEROL 1,000 UNITS 25 MCG TAB PO SCH (07:33)
[2022-11-01] MEDS: LOSARTAN POTASSIUM 50 MG TAB PO SCH (07:33)
[2022-11-01] MEDS: ATENOLOL 50 MG TABLET PO SCH (07:33)
[2022-11-01] MEDS: INSULIN ASPART PER UNIT SC SCH ×4 (07:46→21:24)
[2022-11-01] MEDS: LANTUS PER UNIT CHARGE SQ SCH ×2 (07:53→21:24)
[2022-11-01] MEDS ORDERED: PANTOprazole 40 MG TAB PO SCH (09:00)
--- NOTE | 2022-11-01 11:26 | Electrocardiogram Report ---
Test Reason : Blood Pressure : / mmHG Vent. Rate : 074 BPM Atrial Rate : 074 BPM P-R Int : 224 ms QRS Dur : 082 ms QT Int : 394 ms P-R-T Axes : 038 -11 025 degrees QTc Int : 437 ms Sinus rhythm with 1st degree A-V block Septal infarct , age undetermined Nonspecific ST abnormality Abnormal ECG No previous ECGs available Confirmed by Jonathan Rosario ([id number]) on 11/01/2022 11:26:18 AM Referred By: REFERRED SELF Confirmed By:Jonathan Rosario
--- NOTE | 2022-11-01 14:10 | Billing Data ---
Date of Service November 01, 2022 Coding Level of Care Code 61296 SUB INP/OBS CARE MIN
[2022-11-01] MEDS ORDERED: cefTRIAXone SODIUM 2,000 MG in DEXTROSE 5% 50 ML IV SCH (18:00)
--- NOTE | 2022-11-02 07:19 | Hospitalist Progress Note ---
Date of Service November 02, 2022 Assessment & Plan (1) Acute pyelonephritis: Plan: 87yo female with past medical history of hypertension, diabetes, hyperlipidemia, GERD presented with nausea, vomiting, diaphoresis. Work-up was consistent with UTI. Complicated UTI/Pyelonephritis CTA/P: Urothelial thickening of left renal pelvis and renal collecting system. UA infected appearing UCx growing massey sensitive e. coli Received Rocephin 2 g in ED, continue daily Leukocytosis to 15 (2/) --> 19 (2) Creatinine with normal baseline, normal on admission Sodium/potassium normal CXR: No acute findings CTA chest: No pulmonary emboli. Left kidney 1.77 and under ill-defined area of enhancement which can have follow-up ultrasound performed not emergently/in approximately 3 months. Pt with rigors on arrival. ABx given prior to BC collection. If patient is febrile/has recurrent rigors repeat blood cultures - transition rocephin to cefdinir. Elevated troponin 16.4 initially, peaked at 78.1 Suspect demand in the setting of UTI Patient clinically without chest pain - Pt denies hx of heart problems/failure DM Glucose 180 on admit Hold home metformin Basal/bolus weight-based SSI Hypertension Continue home antihypertensives, normotensive on admit Continue aspirin 3 times weekly Hyperlipidemia Takes Crestor 10 mg on Wednesdays Continue GERD Pantoprazole 40 mg every 48 hours DVT PPx: Heparin Dispo: Med Tele CODE STATUS: DNI/DNR, discussed w pt Diet: DM (2) Elevated troponin: (3) Diabetes mellitus: (4) Hypertension: (5) Hyperlipidemia: (6) GERD (gastroesophageal reflux disease): (7) Esophageal dysphagia: Admission and Anticipated Discharge Date Admission Date: October 31, 2022 Subjective Seen at bedside this AM. Patient feeling well says that her chills and tremors have now resolved. States that she was surprised to hear she had a urinary tract infection as she did not have any symptoms consistent with it no dysuria, frequency, urgency. Denies fever, nausea, vomiting, abdominal pain, flank pain, chest pain, palpitations, shortness of breath, headache, dizziness. Review of Systems Review of Systems: All systems reviewed & are unremarkable except as noted in HPI & below Physical Exam Physical Exam: General: A&Ox3. NAD. Cooperative. HEENT: Atraumatic, normocephalic. Pupils equal and reactive to light. EoM intact, vision/hearing intact Pulm: CTAB A&P. -wheezes, -rales, -rhonchi. Symmetrical chest rise. No increased work of breathing. No respiratory distress. Cardiac: RRR, -mrg. Radial pulses intact and symmetrical. Abdominal: Mild tenderness to deep palpation suprapubically, nondistended, soft. BS present. Ext: warm, dry, moving all extremities equally Results & Data Results & Data ([facility]) Vital Signs (Past 12 Hours) Vital Signs Temp Pulse Pulse Resp BP Pulse Ox O2 Del Method 11/02/22 05:59 66 11/02/22 04:16 37.6 C H 74 20 148/67 H 92 Room Air 11/01/22 23:58 37.8 C H 68 18 145/66 H 92 Room Air 11/01/22 23:19 67 11/01/22 19:23 37.1 C 66 16 111/64 93 Room Air
[2022-11-02 07:45] LABS: Basophils # (auto) 0.03 K/uL (0-0.2); Basophils % (auto) 0.2 %; Eosinophils # (auto) 0.09 K/uL (0-0.50); Eosinophils % (auto) 0.7 %; Hematocrit (blood only) 35.7 % (37.0-47.0); Immature Granulocytes # (auto) 0.09 K/uL (0.01-0.20); Immature Granulocytes % (auto) 0.7 %; Lymphocytes # (auto) 2.28 K/uL (1.2-3.4); Lymphocytes % (auto) 17.5 %; Mean Corpuscular Hemoglobin 31.4 pg (25.0-34.0); Mean Corpuscular Hgb Conc 33.6 g/dL (32.0-36.0); Mean Corpuscular Volume 93.5 fL (80.0-100.0); Mean Platelet Volume 10.5 fL (9.4-12.4); Monocytes # (auto) 1.72 K/uL (0.11-0.59); Monocytes % (auto) 13.2 %; Neutrophils # (auto) 8.84 K/uL (1.40-6.50); Neutrophils % (auto) 67.7 %; Platelet Count 229 K/uL (130-400); RDW Standard Deviation 44.5 fL (36.4-46.3); Red Blood Count 3.82 M/uL (4.20-5.40); White Blood Count 13.05 K/ul (4.8-10.8)
[2022-11-02 07:59] LABS: Estimated Average Glucose 151 mg/dl; Hemoglobin A1C 6.9 % (4.5-5.6)
[2022-11-02 08:01] LABS: BUN Creatinine Ratio 31.6 (10-20); Calcium 9.6 mg/dl (8.5-10.1); Creatinine Clr Calc Pharmacy 34.4 ml/min; Est GFR (Non-African American) 53.5 ml/min; Potassium 3.9 mmol/L (3.5-5.1)
[2022-11-02] MEDS: INSULIN ASPART PER UNIT SC SCH ×2 (08:09→12:12)
[2022-11-02] MEDS: LOSARTAN POTASSIUM 50 MG TAB PO SCH (08:09)
[2022-11-02] MEDS: ATENOLOL 50 MG TABLET PO SCH (08:10)
[2022-11-02] MEDS: TRIAMTERENE/HCTZ 37.5/25MG CAP PO SCH (08:10)
[2022-11-02] MEDS: CHOLECALCIFEROL 1,000 UNITS 25 MCG TAB PO SCH (08:10)
[2022-11-02] MEDS: HEPARIN SOD 5,000 UNIT/0.5 ML VIAL SQ SCH (08:11)
[2022-11-02] MEDS: amLODIPine BESYLATE 5 MG TAB PO SCH (08:11)
[2022-11-02] MEDS: POTASSIUM CHLORIDE 10 MEQ TABCR PO SCH (08:22)
[2022-11-02] MEDS: LANTUS PER UNIT CHARGE SQ SCH (08:23)
[2022-11-02] MEDS ORDERED: ASPIRIN 81 MG ECTAB PO SCH (09:00)
[2022-11-02] MEDS ORDERED: CEFDINIR 300 MG CAP PO SCH (10:45)
--- NOTE | 2022-11-02 12:02 | Discharge Summary ---
Date of Service November 02, 2022 Admission HPI Per Admitting Provider Ruby is a 87-year-old female with a past medical history of hypertension, hyperlipidemia, GERD, diverticulitis, and esophageal dysphagia who presented to the emergency department with nausea/vomiting/diaphoresis [place] [facility] [place] Had nausea and was sick to her stomach and felt overall weak. In the ER she was found to have a leukocytosis and infected appearing UA. CT of the abdomen pelvis shows thickening of the left renal pelvis and collecting system which in conjunction with infected appearing UA was suspicious for pyelonephritis. Patient has been recommended for admission for pyelonephritis. [address]20 [address] 830am. Had breakfast and went home, but then went home and was very cold and had shaking chills. Is a [facility] resident. Was concerned about shaking chills. N/V this morning, nonbloody/nonbilious. Has had loose bowels, dark brown no black/red BMs No fevers. Son found her at home after she was feeling ill and noted that she had violent shaking with chills which occur intermittently, but have not recurred since receiving antibiotics in the ER. No flank pain. No ab tenderness. did not take any [id number]-huspusi attempted treatments. Took a.m. meds except for potassium No chest pain, no chest pressure. No orthopnea. No shortness of breath NO dysuria, no polyuria Had a bladder uplift with Dr. Thacker Oct 09 Medical History: Reviewed Medications: Reviewed Surgical History: Reviewed Allergies: Reviewed Social History: Reviewed Code Status: DNR/DNI Principal Diagnosis Complicated UTI/Pyelonephritis Discharge Exam General: A&Ox3. NAD. Cooperative. HEENT: Atraumatic, normocephalic. EOMI, vision/hearing intact. Pulm: CTAB A&P. -wheezes, -rales, -rhonchi. Symmetrical chest rise. No increased work of breathing. No respiratory distress. Cardiac: RRR, -mrg. Radial pulses intact and symmetrical. Abdominal: Nontender, nondistended, soft. BS present. Ext: warm, dry, moving all extremities equally Discharge Data Allergies Allergy/AdvReac Type Severity Reaction Status Date / Time No Known Drug Allergies Allergy Unknown Verified 12/20/20 19:49 erythromycin base AdvReac upset Verified 10/31/22 17:38 [From Erythrocin] stomach Consultations 10/31/22 17:40 ED Decision to Admit Stat Ordered Studies Laboratory Results WBC 13.05 K/ul (4.8-10.8) H 11/02/22 07: RBC 3.82 M/uL (4.20-5.40) L 11/02/22 07:28 Hgb 12.0 g/dl (12.0-16.0) 11/02/22 07: Hct 35.7 % (37.0-47.0) L 11/02/22 07: MCV 93.5 fL (80.0-100.0) 11/02/22 07: MCH 31.4 pg (25.0-34.0) 11/02/22 07: MCHC 33.6 g/dL (32.0-36.0) 11/02/22 07: RDW Std Deviation 44.5 fL (36.4-46.3) 11/02/22 07: RDW Coeff of Dylon 13.0 % (11.5-14.5) 11/02/22 07: Plt Count 229 K/uL (130-400) 11/02/22 07: MPV 10.5 fL (9.4-12.4) 11/02/22 07:28 Immature Gran % (Auto) 0.7 % 11/02/22 07:28 Neut % (Auto) 67.7 % 11/02/22 07: Lymph % (Auto) 17.5 % 11/02/22 07:28 Early % (Auto) 13.2 % 11/02/22 07:28 Eos % (Auto) 0.7 % 11/02/22 07:28 Baso % (Auto) 0.2 % 11/02/22 07:28 Neut # (Auto) 8.84 K/uL (1.40-6.50) H 11/02/22 07:28 Lymph # (Auto) 2.28 K/uL (1.2-3.4) 11/02/22 07:28 Early # (Auto) 1.72 K/uL (0.11-0.59) H 11/02/22 07:28 Eos # (Auto) 0.09 K/uL (0-0.50) 11/02/22 07:28 Baso # (Auto) 0.03 K/uL (0-0.2) 11/02/22 07:28 Immature Gran # (Auto) 0.09 K/uL (0.01-0.20) 11/02/22 07:28 Sodium 139 mmol/L (136-145) 11/02/22 07:28 Potassium 3.9 mmol/L (3.5-5.1) 11/02/22 07:28 Chloride 108 mmol/L (98-107) H 11/02/22 07:28 Carbon Dioxide 23 mmol/L (21-32) 11/02/22 07:28 Anion Gap 8 (3-11) 11/02/22 07:28 BUN 30 mg/dl (6-23) H 11/02/22 07:28 Creatinine 0.95 mg/dl (0.6-1.2) 11/02/22 07:28 Est Cr Clr Drug Dosing 34.4 ml/min 11/02/22 07:28 Est GFR ( Amer) 62.0 ml/min 11/02/22 07:28 Est GFR (Non-Af Amer) 53.5 ml/min 11/02/22 07:28 BUN/Creatinine Ratio 31.6 (10-20) H 11/02/22 07:28 Glucose 113 mg/dl (70-99(Fasting)) H 11/02/22 07:28 POC Glucose 122 mg/dl (70-99) H 11/02/22 11:42 Estimat Average Glucose 151 mg/dl 11/01/22 03:43 Hemoglobin A1c 6.9 % (4.5-5.6) H 11/01/22 03:43 Calcium 9.6 mg/dl (8.5-10.1) 11/02/22 07:28 Total Bilirubin 0.5 mg/dl (0.2-1.0) 10/31/22 14:10 AST 17 U/L (13-39) 10/31/22 14:10 ALT 11 U/L (7-52) 10/31/22 14:10 Alkaline Phosphatase 70 U/L (34-104) 10/31/22 14:10 Troponin I High Sens 55.6 pg/ml (0-14) H* 11/01/22 08:54 Total Protein 7.3 gm/dl (6.0-8.3) 10/31/22 14:10 Albumin 4.2 gm/dl (3.4-5.0) 10/31/22 14:10 Globulin 3.1 gm/dl (2.5-4.0) 10/31/22 14:10 Albumin/Globulin Ratio 1.4 (0.9-2) 10/31/22 14:10 Lipase 17 U/L (11-82) 10/31/22 14:10 Urine Color Yellow 10/31/22 15:38 Urine Appearance Cloudy (Clear) A 10/31/22 15:38 Urine pH 6.5 (4.5-7.5) 10/31/22 15:38 Ur Specific Two Dot 1.016 (1.000-1.030) 10/31/22 15:38 Urine Protein 3+ (Negative) H 10/31/22 15:38 Urine Glucose (UA) Trace (Negative) H 10/31/22 15:38 Urine Ketones Negative (Negative) 10/31/22 15:38 Urine Blood 1+ (Negative) H 10/31/22 15:38 Urine Nitrite Positive (Negative) A 10/31/22 15:38 Urine Bilirubin Negative (Negative) 10/31/22 15:38 Urine Urobilinogen Negative (Negative) 10/31/22 15:38 Ur Leukocyte Esterase 1+ (Negative) H 10/31/22 15:38 Urine WBC (Auto) >30 /hpf (0-5) H 10/31/22 15:38 Urine RBC (Auto) 0-4 /hpf (0-4) 10/31/22 15:38 U Hyaline Cast (Auto) 10-30 /lpf (0-5) H 10/31/22 15:38 U Epithel Cells (Auto) 10-20 /lpf (0-5) H 10/31/22 15:38 Urine Bacteria (Auto) 4+ (Negative) H 10/31/22 15:38 SARS-CoV-2, RNA, NAAT NEGATIVE (NEGATIVE) 10/31/22 20:26 Impressions Abdomen/Pelvis CT 10/31/22 14:01 CT angio chest PE protocol, CT abd pelvis IV con only CT DOSE: 589.57 mGy.cm HISTORY: 87 years-old Female with PE. Acute shortness of breath with chest, abdominal pain and vomiting TECHNIQUE: Multiple CTA images of the chest were obtained after the intravenous administration of 112 ml Optiray. Coronal and sagittal MIPS were obtained from the axial data set and were submitted for review. CT abdomen and pelvis was also obtained with IV contrast. All measurements were obtained according to NASCET criteria. A dose lowering technique was utilized adhering to the principles of ALARA. COMPARISON: CT abdomen and pelvis 07/28/2022, renal ultrasound 08/04/2022. FINDINGS: CTA CHEST: Moderate cardiomegaly without pericardial effusion. Mild coronary artery calcifications. No thoracic aortic aneurysm or dissection. Unremarkable pulmonary artery. No pulmonary emboli are identified. CT CHEST: Unremarkable thyroid. Nonspecific mildly enlarged 1.5 cm right hilar lymph node on image 126. Trace right pleural effusion. No pneumothorax. Bronchial wall thickening with bibasilar mucous plugging. Mild bibasilar groundglass densities suggestive of atelectasis. No suspicious pulmonary nodules or masses. Central airways are patent. No acute fracture identified. Degenerative changes of the shoulders and spine. CT ABDOMEN/PELVIS: No pneumatosis or pneumoperitoneum. Unremarkable spleen, mildly atrophic pancreas and adrenal glands. Gallbladder is within normal limits. Unchanged mild extrahepatic biliary ductal dilation. A few scattered hepatic cysts redemonstrated. Patency of the hepatic and portal veins. Focal area of heterogeneous enhancement within the left kidney anterior interpolar distribution measuring 1.7 cm on image 152 appears unchanged. Mild urothelial thickening of the left renal collecting system and proximal ureter. 9 mm indeterminate intermediate density lesion of the upper pole right kidney is unchanged, image 186. Partial distention of the urinary bladder wall thickening. Pelvic floor relaxation redemonstrated. Atherosclerosis of the aorta retroaortic left renal vein. No lymphadenopathy identified. No bowel obstruction or bowel wall thickening. Moderate colonic fecal retention. Colonic diverticulosis. Appendix not visualized. Tiny fat filled umbilical hernia. Degenerative changes of the spine, pelvis and hips. IMPRESSION: 1. No acute intrathoracic abnormality. No pulmonary emboli identified. 2. No bowel obstruction or bowel wall thickening. 3. Colonic diverticulosis. 4. Unchanged 1.7 cm ill-defined area of heterogeneous enhancement within left kidney suggestive of scarring versus underlying lesion. As previously stated on the prior ultrasound, correlation with a nonemergent renal ultrasound recommended in approximately 3 months. 5. Pelvic floor relaxation. 6. Mild urothelial thickening of the left renal pelvis and renal collecting system. Correlate with urinalysis to exclude infection. 7. Additional findings as above. ACT 112: Negative or not required by law. The above report was generated using voice recognition software. It may contain grammatical, syntax or spelling errors. Electronically signed by: Trever French M.D. 10/31/2022 5:36 PM Chest CTA 10/31/22 14:01 CT angio chest PE protocol, CT abd pelvis IV con only CT DOSE: 589.57 mGy.cm HISTORY: 87 years-old Female with PE. Acute shortness of breath with chest, abdominal pain and vomiting TECHNIQUE: Multiple CTA images of the chest were obtained after the intravenous administration of 112 ml Optiray. Coronal and sagittal MIPS were obtained from the axial data set and were submitted for review. CT abdomen and pelvis was also obtained with IV contrast. All measurements were obtained according to NASCET criteria. A dose lowering technique was utilized adhering to the principles of ALARA. COMPARISON: CT abdomen and pelvis 07/28/2022, renal ultrasound 08/04/2022. FINDINGS: CTA CHEST: Moderate cardiomegaly without pericardial effusion. Mild coronary artery calcifications. No thoracic aortic aneurysm or dissection. Unremarkable pulmonary artery. No pulmonary emboli are identified. CT CHEST: Unremarkable thyroid. Nonspecific mildly enlarged 1.5 cm right hilar lymph node on image 126. Trace right pleural effusion. No pneumothorax. Bronchial wall thickening with bibasilar mucous plugging. Mild bibasilar groundglass densities suggestive of atelectasis. No suspicious pulmonary nodules or masses. Central airways are patent. No acute fracture identified. Degenerative changes of the shoulders and spine. CT ABDOMEN/PELVIS: No pneumatosis or pneumoperitoneum. Unremarkable spleen, mildly atrophic pancreas and adrenal glands. Gallbladder is within normal limits. Unchanged mild extrahepatic biliary ductal dilation. A few scattered hepatic cysts redemonstrated. Patency of the hepatic and portal veins. Focal area of heterogeneous enhancement within the left kidney anterior interpolar distribution measuring 1.7 cm on image 152 appears unchanged. Mild urothelial thickening of the left renal collecting system and proximal ureter. 9 mm indeterminate intermediate density lesion of the upper pole right kidney is unchanged, image 186. Partial distention of the urinary bladder wall thickening. Pelvic floor relaxation redemonstrated. Atherosclerosis of the aorta retroaortic left renal vein. No lymphadenopathy identified. No bowel obstruction or bowel wall thickening. Moderate colonic fecal retention. Colonic diverticulosis. Appendix not visualized. Tiny fat filled umbilical hernia. Degenerative changes of the spine, pelvis and hips. IMPRESSION: 1. No acute intrathoracic abnormality. No pulmonary emboli identified. 2. No bowel obstruction or bowel wall thickening. 3. Colonic diverticulosis. 4. Unchanged 1.7 cm ill-defined area of heterogeneous enhancement within left kidney suggestive of scarring versus underlying lesion. As previously stated on the prior ultrasound, correlation with a nonemergent renal ultrasound recommended in approximately 3 months. 5. Pelvic floor relaxation. 6. Mild urothelial thickening of the left renal pelvis and renal collecting system. Correlate with urinalysis to exclude infection. 7. Additional findings as above. ACT 112: Negative or not required by law. The above report was generated using voice recognition software. It may contain grammatical, syntax or spelling errors. Electronically signed by: Trever French M.D. 10/31/2022 5:36 PM Chest X-Ray 10/31/22 14:01 XR chest 1V portable HISTORY: 87 years-old Female vomiting acute chest pain with nausea and vomiting COMPARISON: Thoracic spine radiographs 12/24/2020 TECHNIQUE: AP view of the chest FINDINGS: Cardiac mediastinal and hilar silhouettes are within normal limits. Mild right hemidiaphragmatic elevation. No pneumothorax, large pleural effusion, overt pulmonary edema or lobar airspace consolidation. Degenerative changes of the shoulders and spine. IMPRESSION: No acute process. ACT 112: Negative or not required by law. The above report was generated using voice recognition software. It may contain grammatical, syntax or spelling errors. Electronically signed by: Trever French M.D. 10/31/2022 2:25 PM Hospital Course (1) Acute pyelonephritis: 87yo female with past medical history of hypertension, diabetes, hyperlipidemia, GERD presented with nausea, vomiting, diaphoresis. Work-up was consistent with UTI. Complicated UTI/Pyelonephritis CTA/P: Urothelial thickening of left renal pelvis and renal collecting system. UA infected appearing UCx growing massey sensitive e. coli Received Rocephin 2g x2 days. Transitioned to cefdinir, will continue in outpatient setting (total 10 days abx). Leukocytosis improving Creatinine with normal baseline, normal on admission CXR: No acute findings CTA chest: No pulmonary emboli. Unchanged left kidney 1.77cm ill-defined area of enhancement which can be suggestive of scarring vs underlying lesion. Recommend nonemergent follow up ultrasound in approximately 3 months. Elevated troponin, peaked 16.4 initially, peaked at 78.1 Suspect demand in the setting of UTI. Denied CP. DM Cont. home metformin Hypertension Continue home antihypertensives, normotensive on admit Continue aspirin 3 times weekly Hyperlipidemia Cont. home Crestor 10mg on Wednesdays GERD Cont. home pantoprazole 40mg QOD (2) Elevated troponin: (3) Diabetes mellitus: (4) Hypertension: (5) Hyperlipidemia: (6) GERD (gastroesophageal reflux disease): (7) Esophageal dysphagia: Total Time Total Time Spent Total Time Spent (In Minutes): 30 Discharge Plan Discharge Items Patient Disposition: Home - Self-Care Reason For Visit: UTI,ELEVATED TROPONIN Discharge Diagnosis: Complicated UTI/pyelo Activity: Per Instructions section Non-emergency contact: Primary Care Provider Call non-emergency contact if: you have any medication questions, your symptoms worsen and you have a fever Follow-up/Referrals: Patricio Tenorio MD [Primary Care Provider] - Diet: Carb Consistent or DM2 Addtl Attending Provider Instructions: You were admitted to the hospital for a suspected kidney infection also known as pyelonephritis. We have been treating you with a few days of antibiotics in the hospital and you have significantly improved. Our therapists do recommend that you can return to home without a rehab. To continue treating the infection we have sent a prescription to [place] for an antibiotic called cefdinir which you should take twice a day for the next 7 days. Your next dose will be on the evening of November 02 which is your discharge today. Please follow-up with your primary care provider for further guidance. Pending Studies at Discharge: No Stand-Alone Forms: My [facility], Smoking Cessation Medications and DC Order Prescriptions: New cefdinir 300 mg Capsule 300 mg PO BID Qty: 15 0RF Rx Instructions: Next dose evening 11/02/22. Continued losartan 100 mg tablet 100 mg PO QAM triamterene-hydrochlorothiazid 37.5-25 mg capsule 1 cap PO QAM atenolol 50 mg tablet 50 mg PO QAM amlodipine [Norvasc] 5 mg tablet 5 mg PO QAM potassium chloride 10 mEq capsule, extended release 30 meq PO DAILY cholecalciferol (vitamin D3) 1,000 unit capsule 1,000 units PO QAM aspirin [Adult Low Dose Aspirin] 81 mg tablet,delayed release (DR/EC) 81 mg PO 3XWK rosuvastatin [Crestor] 10 mg tablet 10 mg PO WK Patient Comments: 10 mg PO once weekly (Wednesday); metformin 500 mg tablet extended release 24 hr 500 mg PO DAILY pantoprazole 40 mg tablet,delayed release (DR/EC) 40 mg PO Q OTHER DAY ibuprofen 600 mg Tablet 600 mg PO Q8H PRN (Reason: post-operative pain) Discharge Orders: Discharge Order (Routine); Ordered 11/02/22 Ordered By: Abdulaziz Alvarez/Other Patient Handouts: Managing Type 2 Diabetes Admission Data Admit Date/Time: 10/31/22 19:10 Attending Provider: Darren Lopez Admit Provider: Jonathan Soares Primary Care Provider: Patricio Tenorio Other Providers: Jonathan Soares Other Interventions: Discharge Summary Assessment (RN) Last Done: 11/02/22 14:29 Supervising Physician Co-Signing Physician Notes Attending attestation Pt seen and examined in concert with Dr. Ingram. In agreement with the documented findings as noted in the resident documentation with any exceptions or additions as noted here. No further report of urnary symtoms, nor ongoing fevers. On examination, S1/S2 nl RRR no MCG. CTAB. Abd NT/ND BS+ve Complicated UTI/pyelonephritis in the setting of chronic, stable L kidney lesion - complete course of cefdinir as noted. Will need ongoing f/u of renal lesion as noted above. Else see resident documentation as noted. Total attending physician time spent with this patient's care on the day of discharge: 35 minutes. Resident Activity Tracking Resident Involvement: Resident Care Provided Care Provided: Adult Hospital Medicine
[2022-11-04] MEDS ORDERED: ROSUVASTATIN CALCIUM 10 MG TAB PO SCH (09:00)
== END 2022-11-02 15:56 | disposition home or self-care (01) | DRG 872 ==
LOC: ED 13:57 → 2N 19:10 → SUATTDRO 19:10 → 2N 22:44